=== PATIENT | male | born 1955 | race Caucasian/White ===

== ENCOUNTER → 2017-04-08 | Outpatient (CLI) | payer BC ==
[2017-04-08 11:43] LABS: Basophils # (A) 0.1 k/uL (0-0.2); Basophils % (A) 1 %; CH 27.6; CHCM 31.7; Eosinophils # (A) 0.2 k/uL (0-0.7); Eosinophils % (A) 3 %; HCT 42.3 % (39.0-53.0); HGB 13.7 gm/dL (13.0-17.5); Hypochromasia Slight; Luc # (Auto) 0.15; Luc % (Auto) 2; Lymphocytes # (A) 1.3 k/uL (1.0-4.8); Lymphocytes % (A) 16 %; MCH 28.4 pg (25.0-35.0); MCHC 32.4 g/dL (31.0-37.0); MCV 87.6 fL (80.0-100.0); Mean Platelet Volume 7.3; Monocytes # (A) 0.4 k/uL (0-1.0); Monocytes % (A) 5 %; Neutrophils # (A) 6.2 k/uL (1.3-7.7); Neutrophils % (A) 74 %; RBC 4.83 m/uL (4.30-5.90); RDW 14.4 % (11.5-15.5); WBC 8.4 k/uL (3.8-10.6); WBC (Perox) 8.27
[2017-04-08 13:34] LABS: ALT 31 U/L (21-72); AST 22 U/L (17-59); Alkaline Phosphatase 74 U/L (38-126); Anion Gap 8 mmol/L; Blood Urea Nitrogen 21 mg/dL (9-20); Calcium 8.7 mg/dL (8.4-10.2); Carbon Dioxide 26 mmol/L (22-30); Chloride 107 mmol/L (98-107); Glucose 140 mg/dL (74-99); Non-African American GFR(MDRD) >60 (>60 ml/min/1.73 sqM); Potassium 4.2 mmol/L (3.5-5.1); Sodium 141 mmol/L (137-145); Total Bilirubin 0.4 mg/dL (0.2-1.3); Total Protein 6.9 g/dL (6.3-8.2)
[2017-04-08 13:41] LABS: Prealbumin 13 mg/dL (18-36)
== END | disposition home or self-care (01) ==
LOC: LABWHC1 11:17
PROVIDERS: ATTEND Podiatrist
DX: I87.2 Venous insufficiency (chronic) (peripheral) (principal)
CPT/HCPCS: 36415; 80053; 84134; 85025

== ENCOUNTER → 2017-04-20 | Outpatient (CLI) | payer BC ==
--- NOTE | 2017-04-20 09:16 | US ---
LOWER EXTREMITY VENOUS INSUFFICIENCY Wound care patient. Wound left leg x 2 months. Hx of blood clots in right leg and PE's. On blood th inners. Bilateral hip replacement. No pain. Comparison: Prior lower extremity venous ultrasound February 13, 2016 SIDE PERFORMED: Bilateral 1) Color flow is present and patency is documented in the following vessels. No DVT or SVT is noted . ? EIV ? Common Femoral Vein ? Deep Femoral Vein ? Femoral Vein ? Popliteal Vein ? Greater Saph Vein 2) There is venous reflux noted at the following venous levels: Right CFV, Deep Femoral Vein, Femoral Vein and Popliteal Vein. Left CFV, Femoral Vein and Popliteal Vein. IMPRESSION: No ultrasound evidence for acute DVT in either lower extremity on today's study. Right gr eater than left lower extremity venous reflux is seen as detailed above.
--- NOTE | 2017-04-27 10:16 | P.ARTDOP ---
Arterial Doppler LOWER EXTREMITY ARTERIAL DOPPLER: DATE OF SERVICE: 04/20/2017 Reason for study: Left leg ulcer. Doppler waveforms: Multiphasic bilaterally throughout. Pulse volume recording: Normal configuration. Pressure gradients: None. Ankle-brachial indices: Greater than 1 bilaterally. Toe pressures: 125 on the right, 140 on the left Impression: Normal study.
== END | disposition home or self-care (01) ==
LOC: RADUSWWP 06:56
PROVIDERS: ATTEND Podiatrist
DX: M79.604 Pain in right leg (principal); M79.605 Pain in left leg; R60.9 Edema, unspecified
CPT/HCPCS: 93922

== ENCOUNTER → 2018-04-10 | Outpatient (CLI) | payer BC ==
--- NOTE | 2018-04-10 12:25 | US ---
EXAMINATION TYPE: US venous doppler duplex LE LT DATE OF EXAM: 04/10/2018 9:46 AM COMPARISON: 04/20/2017 CLINICAL HISTORY: 63-year-old male M79.605 PAIN IN LT LEG. LOWER EXTREMITY VENOUS INSUFFICIENCY SIDE PERFORMED: left FINDINGS: 1) Color flow is present and patency is documented in the following vessels. No DVT or SVT is noted . EIV Common Femoral Vein Femoral Vein Popliteal Vein Greater Saph Vein Upper Small Saph Vein 2) There is venous reflux noted at the following venous levels: Mid and lower femoral vein. Lower popliteal vein. Inclusion Specialist notes: Very limited study, unable to see upper femoral vein and DFV at CFV bifurcation du e to patient body habitus. There is some subcutaneous soft tissue swelling with edema channels in the upper calf. IMPRESSION: 1. Limited exam. Due to patient body habitus, unable to visualize the upper femoral vein or the deep femoral vein. These vessels are not assessed. 2. No evidence for DVT within the remainder of the left lower extremity imaged from the groin to the calf. 3. Venous reflux seen in the mid and lower femoral vein as well as the lower popliteal vein.
--- NOTE | 2018-04-12 09:07 | P.ARTDOP ---
Arterial Doppler LOWER EXTREMITY ARTERIAL DOPPLER: DATE OF SERVICE: 04/10/2018 Reason for study: Left leg ulcer. Doppler waveforms: Multiphasic bilaterally throughout. Pulse volume recording: []. Pressure gradients: None. Ankle-brachial indices: Greater than 1 bilaterally. Toe pressures: 131 on the right, 131 on the left Impression: Normal study.
== END | disposition home or self-care (01) ==
LOC: RADUSWWP 09:06
PROVIDERS: ATTEND Podiatrist
DX: I87.2 Venous insufficiency (chronic) (peripheral) (principal)
CPT/HCPCS: 93923

== ENCOUNTER → 2018-05-04 | Outpatient (CLI) | payer BC ==
--- NOTE | 2018-05-04 15:39 | ECHOF ---
Referral Reason:R06.02 Shortness of Breath, I10 Hypertension MEASUREMENTS -------- HEIGHT: 175.3 cm WEIGHT: 222.3 kg BP: RVIDd: 3.7 cm (< 3.3) IVSd: 1.6 cm (0.6 - 1.1) LVIDd: 5.3 cm (3.9 - 5.3) LVPWd: 1.5 cm (0.6 - 1.1) IVSs: 1.8 cm LVIDs: 4.1 cm LVPWs: 1.7 cm LA Diam: 4.1 cm (2.7 - 3.8) Ao Diam: 4.3 cm (2.0 - 3.7) AV Cusp: 1.8 cm (1.5 - 2.6) LA Diam: 3.3 cm (2.7 - 3.8) EPSS: 1.0 cm MV E Weston: 0.52 m/s MV DecT: 218 ms MV A Weston: 0.55 m/s MV E/A Ratio: 0.94 MV EF SLOPE: 72.14 mm/s (70 - 150) MV EXCURSION: 1.59 cm (> 18.000) FINDINGS -------- Sinus rhythm. Morbid Obesity The left ventricular size is normal. There is mild concentric left ventricular hypertrophy. Overa ll left ventricular systolic function is low-normal with, an EF between 50 - 55 %. The right ventricle is mild to moderately enlarged. The left atrial size is normal. The right atrial size is normal. 1.5mg of Definity was utilized for enhancement of images The aortic valve is trileaflet, and appears structurally normal. No aortic stenosis or regurgitation. Mild mitral regurgitation is present. No regurgitation noted Right ventricular systolic pressure is normal at < 35 mmHg. There is no ev idence of pulmonary hypertension. The pulmonic valve was not well visualized. There is no pericardial effusion. CONCLUSIONS -------- 1. Morbid Obesity 2. The left ventricular size is normal. 3. There is mild concentric left ventricular hypertrophy. 4. Overall left ventricular systolic function is low-normal with, an EF between 50 - 55 %. 5. The right ventricle is mild to moderately enlarged. 6. The left atrial size is normal. 7. The right atrial size is normal. 8. 1.5mg of Definity was utilized for enhancement of images 9. The aortic valve is trileaflet, and appears structurally normal. No aortic stenosis or regurgitati on. 10. Mild mitral regurgitation is present. 11. No regurgitation noted 12. Right ventricular systolic pressure is normal at < 35 mmHg. 13. There is no evidence of pulmonary hypertension. 14. The pulmonic valve was not well visualized. 15. There is no pericardial effusion. ASSISTANT PROFESSOR OF ART: Meme Patricia RDCS
== END | disposition home or self-care (01) ==
LOC: RADECHMAIN 13:09
PROVIDERS: ATTEND Internal Medicine Interventional Cardiology
DX: I34.0 Nonrheumatic mitral (valve) insufficiency (principal); E66.01 Morbid (severe) obesity due to excess calories; I10 Essential (primary) hypertension
CPT/HCPCS: 93306; Q9950

== ENCOUNTER → 2018-08-03 | Outpatient (CLI) | payer MEDICARE, BC ==
[2018-08-03 14:48] VITALS: BP 175/81; PULSE 84; RESP 16; TEMP 98.5; BMI 74.2
--- NOTE | 2018-08-03 16:44 | P.HPBAR ---
Bariatric H&P - History & Physicial H&P Date: 08/03/18 History & Physicial: Visit/CC: bariatric consult Patient initial contact: Initial weight: 228.066 kg Initial weight in pounds: 502.80 Height: 5 ft 9 in Initial BMI: 74.2 Last weight: Current weight: 228.066 kg Current weight in pounds: 502.80 Current BMI: 74.2 [place] body weight (based on NIH guidelines): 72.575 kg Excess body weight loss: 0.0% The patient is a 63 year-old M who presents for Bariatric Assessment. Patient presents today as a new patient bariatric evaluation. Patient is several with his weight for many years. Currently has a BMI of 74 with a weight of 502. Patient suffers from hypertension, diabetes, arthritis, sleep apnea. The patient has a history of previous DVT with PE. Currently on anticoagulation. Denies dysphagia. Was initially mainly interested in sleeve gastrectomy. Previous surgeries including umbilical hernia and nephrectomy. 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 Past Drug Use History: None Reported - Past Family History Son(s) Additional Family Medical History / Comment(s): He has one son with morbid obesity. Mother Family Medical History: Cancer Additional Family Medical History / Comment(s): breast cancer Father Family Medical History: Cancer, COPD, Coronary Artery Disease (CAD), Hypertension, Myocardial Infarction (AR) Additional Family Medical History / Comment(s): emphysema Surgical - Exam Vital Signs Temp Pulse Resp BP 98.5 F 84 16 175/81 08/03/18 14:31 08/03/18 14:31 08/03/18 14:31 08/03/18 14:31 Physical exam: General: Well-developed, well-nourished HEENT: Normocephalic, sclerae nonicteric Abdomen: Nontender, nondistended, large pannus, previous scars Extremities: Lower cavity edema with evidence of venous stasis. Neuro: Alert and oriented Bariatric Assessment & Plan (1) Morbid obesity with BMI of 60.0-69.9, adult Narrative/Plan: Options discussed in detail with the patient. After discussing the risk benefit profile of both gastric bypass and sleeve gastrectomy and the anticipated weight loss the patient is open to discussing and looking into gastric bypass further. Patient will go to a bariatric seminar this coming week put on by Dr. Prieto. Following that the patient will notify us of his decision regarding his preferred surgical procedure. Associated risks with both procedure were reviewed in detail. Will require preoperative cardiac and medical clearance. Patient will be maintained on postoperative anticoagulation. Status: Acute Bariatric Checklist Checklist: Plan: Checklist: EGD: 1. Hiatal hernia: 2. H. Pylori: HgbA1c: Vitamin D: Smoking: Never smoker Primary care physician referral: [facility] Psychiatry clearance: Cardiology clearance: Sleep study: Diet journal: VTE risk score: VTE risk level: Rehab needs at discharge:
== END | disposition home or self-care (01) ==
LOC: BARWHC3 14:19
PROVIDERS: ATTEND Surgery
DX: E66.01 Morbid (severe) obesity due to excess calories (principal); I82.409 Acute embolism and thrombosis of unspecified deep veins of unspecified lower extremity; Z68.44 Body mass index [BMI] 60.0-69.9, adult; Z79.01 Long term (current) use of anticoagulants
CPT/HCPCS: 99211

== ENCOUNTER → 2018-08-31 | Outpatient (CLI) | payer MEDICARE, BC ==
[2018-08-31 12:18] VITALS: BP 164/75; PULSE 76; TEMP 98; BMI 73.3
[2018-08-31 14:36] LABS: ALT 38 U/L (21-72); AST 19 U/L (17-59); Albumin 3.5 g/dL (3.5-5.0); Alkaline Phosphatase 75 U/L (38-126); Anion Gap 6 mmol/L; Blood Urea Nitrogen 21 mg/dL (9-20); Calcium 9.1 mg/dL (8.4-10.2); Carbon Dioxide 34 mmol/L (22-30); Chloride 99 mmol/L (98-107); Cholesterol 139 mg/dL (<200); Glucose 110 mg/dL (74-99); HDL Cholesterol 48 mg/dL (40-60); LDL Cholesterol,Calculated 74 mg/dL (0-99); Potassium 4.3 mmol/L (3.5-5.1); Sodium 139 mmol/L (137-145); Total Bilirubin 0.7 mg/dL (0.2-1.3); Total Protein 7.3 g/dL (6.3-8.2); Triglycerides 84 mg/dL (<150)
[2018-08-31 14:37] LABS: HCT 47.2 % (39.0-53.0); HGB 14.9 gm/dL (13.0-17.5); Hypochromasia Moderate; MCH 26.9 pg (25.0-35.0); MCHC 31.6 g/dL (31.0-37.0); MCV 85.2 fL (80.0-100.0); Mean Platelet Volume 7.1; Platelet Count 208 k/uL (150-450); RBC 5.54 m/uL (4.30-5.90); RDW 14.2 % (11.5-15.5); WBC 15.5 k/uL (3.8-10.6)
[2018-08-31 19:58] LABS: Iron Saturation 11.6 (15.00-50.00)
[2018-08-31 20:10] LABS: Folate, Serum 8.7 ng/mL; Vitamin D 25 Hydroxy 44.7 ng/mL (30.0-100.0)
[2018-08-31 20:23] LABS: Hemoglobin A1C 8.1 % (4.0-6.0)
--- NOTE | 2018-08-31 22:04 | P.HPBAR ---
Bariatric H&P - History & Physicial H&P Date: 08/31/18 History & Physicial: Visit/CC: RnY consult Patient initial contact: Initial weight: 228.066 kg Initial weight in pounds: 502.80 Height: 5 ft 9 in Initial BMI: 74.2 Last weight: Current weight: 225.163 kg Current weight in pounds: 496.40 Current BMI: 73.3 [place] body weight (based on NIH guidelines): 72.575 kg Excess body weight loss: 1.8% The patient is a 63 year-old M who presents for Bariatric Assessment. HPI: The patient presents for bariatric evaluation following recent diagnosis of diabetes. His highest weight is 503 pounds. He is a patient at the wound care center for chronic wound ulcers. ABDOMEN: Protuberant PLAN: 1. Recommend diabetic education 2. Bariatric labs 3. Will need multiple clearances given high risk 4. Evaluation of sleeve gastrectomy and bypass reviewed. 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 Past Drug Use History: None Reported - Past Family History Son(s) Additional Family Medical History / Comment(s): He has one son with morbid obesity. Mother Family Medical History: Cancer Additional Family Medical History / Comment(s): breast cancer Father Family Medical History: Cancer, COPD, Coronary Artery Disease (CAD), Hypertension, Myocardial Infarction (AR) Additional Family Medical History / Comment(s): emphysema Surgical - Exam Vital Signs Temp Pulse BP 98 F 76 164/75 08/31/18 12:11 08/31/18 12:11 08/31/18 12:11 Results - Labs 08/31/18 13:40 08/31/18 13:40 Abnormal Lab Results - Last 24 Hours (Table) 08/31/18 08/31/18 08/31/18 Range/Units 13:40 13:40 13:40 WBC 15.5 H (3.8-10.6) k/uL Carbon Dioxide 34 H (22-30) mmol/L BUN 21 H (9-20) mg/dL Glucose 110 H (74-99) mg/dL Hemoglobin A1c (4.0-6.0) % Iron 42 L (65-175) ug/dL Iron Saturation 11.60 L (15.00-50.00) 08/31/18 Range/Units 13:40 WBC (3.8-10.6) k/uL Carbon Dioxide (22-30) mmol/L BUN (9-20) mg/dL Glucose (74-99) mg/dL Hemoglobin A1c 8.1 H (4.0-6.0) % Iron (65-175) ug/dL Iron Saturation (15.00-50.00) Diabetes panel 08/31/18 08/31/18 Range/Units 13:40 13:40 Sodium 139 (137-145) mmol/L Potassium 4.3 (3.5-5.1) mmol/L Chloride 99 (98-107) mmol/L Carbon Dioxide 34 H (22-30) mmol/L BUN 21 H (9-20) mg/dL Creatinine 0.77 (0.66-1.25) mg/dL Glucose 110 H (74-99) mg/dL Hemoglobin A1c 8.1 H (4.0-6.0) % Calcium 9.1 (8.4-10.2) mg/dL AST 19 (17-59) U/L ALT 38 (21-72) U/L Alkaline Phosphatase 75 (38-126) U/L Total Protein 7.3 (6.3-8.2) g/dL Albumin 3.5 (3.5-5.0) g/dL Triglycerides 84 (<150) mg/dL HDL Cholesterol 48 (40-60) mg/dL Thyroid panel 08/31/18 Range/Units 13:40 TSH 1.230 (0.465-4.680) mIU/L Calcium panel 08/31/18 Range/Units 13:40 Calcium 9.1 (8.4-10.2) mg/dL Albumin 3.5 (3.5-5.0) g/dL Pituitary panel 08/31/18 Range/Units 13:40 Sodium 139 (137-145) mmol/L Potassium 4.3 (3.5-5.1) mmol/L Chloride 99 (98-107) mmol/L Carbon Dioxide 34 H (22-30) mmol/L BUN 21 H (9-20) mg/dL Creatinine 0.77 (0.66-1.25) mg/dL Glucose 110 H (74-99) mg/dL Calcium 9.1 (8.4-10.2) mg/dL TSH 1.230 (0.465-4.680) mIU/L Adrenal panel 08/31/18 Range/Units 13:40 Sodium 139 (137-145) mmol/L Potassium 4.3 (3.5-5.1) mmol/L Chloride 99 (98-107) mmol/L Carbon Dioxide 34 H (22-30) mmol/L BUN 21 H (9-20) mg/dL Creatinine 0.77 (0.66-1.25) mg/dL Glucose 110 H (74-99) mg/dL Calcium 9.1 (8.4-10.2) mg/dL Total Bilirubin 0.7 (0.2-1.3) mg/dL AST 19 (17-59) U/L ALT 38 (21-72) U/L Alkaline Phosphatase 75 (38-126) U/L Total Protein 7.3 (6.3-8.2) g/dL Albumin 3.5 (3.5-5.0) g/dL Bariatric Checklist Checklist: Plan: Checklist: EGD: 1. Hiatal hernia: 2. H. Pylori: HgbA1c: Vitamin D: Smoking: Never smoker Primary care physician referral: [facility] Psychiatry clearance: Cardiology clearance: Sleep study: Diet journal: VTE risk score: VTE risk level: Rehab needs at discharge:
== END | disposition home or self-care (01) ==
LOC: BARWHC3 11:06
PROVIDERS: ATTEND Surgery Plastic and Reconstructive Surgery
DX: E11.622 Type 2 diabetes mellitus with other skin ulcer (principal); L98.499 Non-pressure chronic ulcer of skin of other sites with unspecified severity; F41.9 Anxiety disorder, unspecified; F32.9 Major depressive disorder, single episode, unspecified; E66.01 Morbid (severe) obesity due to excess calories; E88.81 Metabolic syndrome and other insulin resistance; E44.0 Moderate protein-calorie malnutrition; E55.9 Vitamin D deficiency, unspecified; Z68.43 Body mass index [BMI] 50.0-59.9, adult; I11.9 Hypertensive heart disease without heart failure; G47.30 Sleep apnea, unspecified; Z90.89 Acquired absence of other organs; Z98.890 Other specified postprocedural states
CPT/HCPCS: 84425; 80061; 80053; 82607; 82728; 82746; 83540; 83550; 84443; 85027; 82306; 83036; 93005; 36415; G0463; 99211

== ENCOUNTER 2018-09-25 06:31 | Day surgery (SDC) | payer MEDICARE, BC ==
[2018-09-20 15:19] VITALS: BMI 73.2
--- NOTE | 2018-09-24 18:51 | P.GSHP ---
History of Present Illness H&P Date: 09/25/18 CHIEF COMPLAINT: GERD HISTORY OF PRESENT ILLNESS: The patient is a 63-year-old male who presents reports gastroesophageal reflux disease. Upper endoscopy was offered for further evaluation and management. PAST MEDICAL HISTORY: Please see list. PAST SURGICAL HISTORY: Please see list. MEDICATIONS: Please see list. ALLERGIES: Please see list. SOCIAL HISTORY: No illicit drug use FAMILY HISTORY: No reports of Crohn disease or ulcerative colitis. REVIEW OF ORGAN SYSTEMS: CONSTITUTIONAL: No reports of fevers or chills. GI: Denies any blood in stools or constipation. PHYSICAL EXAM: VITAL SIGNS: Stable GENERAL: Well-developed and pleasant in no acute distress. HEENT: No scleral icterus. Extraocular movements grossly intact. Moist buccal mucosa. NECK: Supple without lymphadenopathy. CHEST: Unlabored respirations. Equal bilateral excursions. CARDIOVASCULAR: Regular rate and rhythm. Distal 2+ pulses. ABDOMEN: Soft, nondistended. MUSCULOSKELETAL: No clubbing, cyanosis, or edema. ASSESSMENT: 1. Gastroesophageal reflux disease PLAN: 1. 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 COLONOSCOPY, Past Anesthesia/Blood Transfusion Reactions: No Reported Reaction Smoking Status: Never smoker - Past Family History Son(s) Additional Family Medical History / Comment(s): He has one son with morbid obesity. Mother Family Medical History: Cancer Additional Family Medical History / Comment(s): breast cancer Father Family Medical History: Cancer, COPD, Coronary Artery Disease (CAD), Hypertension, Myocardial Infarction ([place]) Additional Family Medical History / Comment(s): emphysema Medications and Allergies Home Medications Medication Instructions Recorded Confirmed Type Carisoprodol [Soma] 350 mg PO TID PRN 03/21/14 09/20/18 History traMADol HCL [Ultram] 50 mg PO Q8HR PRN 10/05/17 09/20/18 History Albuterol Nebulized [Ventolin 2.5 mg INHALATION TID PRN 03/28/18 09/20/18 History Nebulized] Metoprolol Tartrate 25 mg PO BID 03/28/18 09/20/18 History Rivaroxaban [Xarelto] 10 mg PO DAILY 03/28/18 09/20/18 History Lisinopril [Zestril] 5 mg PO DAILY 07/13/18 09/20/18 History Vit D3/Folic Acid/B2/B6/B12 1.25 tab PO Q30D 07/13/18 09/20/18 History [Folgard Tablet] metFORMIN HCL [Glucophage] 500 mg PO BID 08/31/18 09/20/18 History Allergies Allergy/AdvReac Type Severity Reaction Status Date / Time Sulfa (Sulfonamide Allergy throat Verified 09/20/18 15:14 Antibiotics) swelling
[~2018-09-25 06:31] MED LIST: LACTATED RINGERS 1,000 ML IV SCH; LIDOCAINE 1% 20 ML VIAL (10MG/ML) FOR IV START INTRADERMA PRN
[2018-09-25 06:57] VITALS: TEMP 99
[2018-09-25 07:03] LABS: Glucose,Whole Blood 141 mg/dL (75-99)
[2018-09-25] MEDS ORDERED: LACTATED RINGERS 1,000 ML IV ONE ×2 (07:08)
[2018-09-25] MEDS ORDERED: MIDAZOLAM 2 MG/2 ML VIAL ONE (07:11)
[2018-09-25] MEDS ORDERED: PROPOFOL 10 MG/ML 20 ML VIAL IV ONE (07:11)
[2018-09-25] MEDS ORDERED: KETAMINE 10 MG/ML 20 ML VIAL ONE (07:11)
--- NOTE | 2018-09-25 07:30 | P.PCN ---
Date of Procedure: 09/25/18 Description of Procedure: PREOPERATIVE DIAGNOSIS: Gastroesophageal reflux disease. Morbid obesity. POSTOPERATIVE DIAGNOSIS: Morbid obesity. Gastroesophageal reflux disease. OPERATION: Esophagogastroduodenoscopy with biopsies along antrum. SURGEON: Shoshana Roblero MD ANESTHESIA: MAC. INDICATIONS: The patient is a 63-year-old male who presents with a history of reflux disease. Benefits and risks of the procedure were described. Informed consent was obtained. DESCRIPTION: The patient was brought into the endoscopy suite and laid in the left lateral decubitus position. An Olympus gastroscope was passed along the posterior oropharynx down to the distal esophagus where the squamocolumnar junction was encountered at 42 cm from the incisors. The stomach was entered and no bile reflux was found. Additional findings are listed below. Biopsies with cold forceps were obtained of the antrum. The first through third portion of the duodenum was examined and unremarkable. Retroflexion of the scope confirmed Hill grade 2 lower esophageal valve. The squamocolumnar junction demonstrated no LA grade A erosive esophagitis. The stomach was desufflated. The patient tolerated the procedure well. FINDINGS: Squamocolumnar junction 40 cm from the incisors. Diaphragmatic hiatus at 40 cm. Hill grade 2 lower esophageal valve. No LA grade A erosive esophagitis. No active duodenitis. Mild chronic gastritis RECOMMENDATIONS: Upper endoscopy as needed. Plan - Discharge Summary New Discharge Prescriptions: No Action Carisoprodol [Soma] 350 mg PO TID PRN PRN Reason: Pain traMADol HCL [Ultram] 50 mg PO Q8HR PRN PRN Reason: Pain Rivaroxaban [Xarelto] 10 mg PO DAILY Metoprolol Tartrate 25 mg PO BID Albuterol Nebulized [Ventolin Nebulized] 2.5 mg INHALATION TID PRN PRN Reason: sob Lisinopril [Zestril] 5 mg PO DAILY Vit D3/Folic Acid/B2/B6/B12 [Folgard Tablet] 1.25 tab PO Q30D metFORMIN HCL [Glucophage] 500 mg PO BID Discharge Medication List Carisoprodol [Soma] 350 mg PO TID PRN 03/21/14 [History] traMADol HCL [Ultram] 50 mg PO Q8HR PRN 10/05/17 [History] Albuterol Nebulized [Ventolin Nebulized] 2.5 mg INHALATION TID PRN 03/28/18 [ History] Metoprolol Tartrate 25 mg PO BID 03/28/18 [History] Rivaroxaban [Xarelto] 10 mg PO DAILY 03/28/18 [History] Lisinopril [Zestril] 5 mg PO DAILY 07/13/18 [History] Vit D3/Folic Acid/B2/B6/B12 [Folgard Tablet] 1.25 tab PO Q30D 07/13/18 [History] metFORMIN HCL [Glucophage] 500 mg PO BID 08/31/18 [History]
[2018-09-25 07:43] VITALS: RESP 18
[2018-09-25 08:01] VITALS: PULSE 71
[2018-09-25 08:22] VITALS: BP 114/75
== END 2018-09-25 08:50 | disposition home or self-care (01) ==
LOC: ORWHC2ENDO 06:31
PROVIDERS: ATTEND Surgery Plastic and Reconstructive Surgery
DX: K29.50 Unspecified chronic gastritis without bleeding (principal); E66.01 Morbid (severe) obesity due to excess calories; Z68.45 Body mass index [BMI] 70 or greater, adult; I10 Essential (primary) hypertension; Z86.718 Personal history of other venous thrombosis and embolism; Z86.711 Personal history of pulmonary embolism; J45.909 Unspecified asthma, uncomplicated; G47.33 Obstructive sleep apnea (adult) (pediatric); Z99.89 Dependence on other enabling machines and devices; E11.9 Type 2 diabetes mellitus without complications; Z79.84 Long term (current) use of oral hypoglycemic drugs; M41.9 Scoliosis, unspecified; Z79.01 Long term (current) use of anticoagulants; Z79.899 Other long term (current) drug therapy; Z88.2 Allergy status to sulfonamides
CPT/HCPCS: 88305; 43239; J2250; J2704

== ENCOUNTER → 2018-10-23 | Outpatient (CLI) | payer MEDICARE, BC ==
[2018-10-23 13:50] VITALS: BMI 73.2
== END | disposition home or self-care (01) ==
LOC: BARWHC3 09:14
PROVIDERS: ATTEND Surgery Plastic and Reconstructive Surgery
DX: E66.01 Morbid (severe) obesity due to excess calories (principal)
CPT/HCPCS: 97804

== ENCOUNTER → 2019-02-23 | Outpatient (CLI) | payer MEDICARE, BC ==
[2019-02-23 14:37] LABS: HCT 43.2 % (39.0-53.0); HGB 13.3 gm/dL (13.0-17.5); Hypochromasia Marked; MCH 25.7 pg (25.0-35.0); MCHC 30.7 g/dL (31.0-37.0); MCV 83.5 fL (80.0-100.0); Mean Platelet Volume 9.3; Platelet Count 193 k/uL (150-450); RBC 5.17 m/uL (4.30-5.90); RDW 15.2 % (11.5-15.5); WBC 9.1 k/uL (3.8-10.6)
[2019-02-23 19:08] LABS: Albumin 3.3 g/dL (3.80-4.90); Albumin/Globulin Ratio 1.06 (1.60-3.17); Anion Gap 7.5 mmol/L (4.00-12.00); Calcium 8.7 mg/dL (8.7-10.3); Carbon Dioxide 30.5 mmol/L (21.6-31.8); Globulin 3.1 g/dL (1.6-3.3); Potassium 4.7 mmol/L (3.5-5.5); Total Bilirubin 0.5 mg/dL (0.2-1.2); Total Protein 6.4 g/dL (6.2-8.2)
[2019-02-23 20:05] LABS: Hemoglobin A1C 6.2 % (4.0-6.0)
== END ==
LOC: LABWHC1 12:18
PROVIDERS: ATTEND Podiatrist
DX: I87.2 Venous insufficiency (chronic) (peripheral) (principal)
CPT/HCPCS: 36415; 80053; 83036; 84134; 85027

== ENCOUNTER → 2019-04-25 | Outpatient (CLI) | payer MEDICARE, BC ==
[2019-04-25 15:18] VITALS: BP 102/66; PULSE 64; TEMP 98.3; BMI 71.1
--- NOTE | 2019-04-25 15:56 | P.PN ---
Subjective Progress Note Date: 04/25/19 He is looking into gastrectomy procedure. He has completed cardiac, pulmonary. He has chronic infections and had elevated WBC. He ambulates with walker, canes and wheelchair. He has lost 20+ pounds in 8 months. His blood pressure is improved. Sleeve procedure consent. All labs and clearances reviewed. Risks included. DATE OF SERVICE: 08/31/2018 REASON FOR CONSULTATION: Initial bariatric evaluation. HISTORY OF PRESENT ILLNESS: Doug Meng is a 63-year-old male who comes in with super morbid obesity. He patient presents for bariatric evaluation following recent diagnosis of diabetes. His highest weight is 503 pounds. He is a patient at the wound care center for chronic wound ulcers. He has limited mobility as he uses a scooter to move around. He has history of severe lymphedema of the bilateral lower extremities. At height of 5 feet 9 inches, his ideal body weight is 168 pounds. He comes in 495 pounds. His highest weight is 503 pounds. His body mass index highest was 74.0. Today his BMI is 73.3. He is 327 pounds overweight. PAST MEDICAL HISTORY: 1. Morbid obesity due to excess calories 2. Body mass index of 74.0, initial 3. Osteoarthritis of the knees. 4. Osteoarthritis of the lower back. 5. Hypertensive heart disease. 6. Asthma 7. Obstructive sleep apnea 8. Deep venous thrombosis 9. Pulmonary embolism 10. Rheumatoid arthritis 11. Pneumonia 12. Diabetes type 2 13. Anxiety disorder 14. Depressive disorder 15. Venous stasis disease PAST SURGICAL HISTORY: 1. Appendectomy 2. Tonsillectomy 3. Adenoidectomy 4. Hernia repair 5. Bilateral hip replacement 6. Nephrectomy HOME MEDICATIONS: ALLERGIES: Home Medications Medication Instructions Recorded Confirmed Type Carisoprodol [Soma] 350 mg PO TID PRN 03/21/14 09/20/18 History traMADol HCL [Ultram] 50 mg PO Q8HR PRN 10/05/17 09/20/18 History Albuterol Nebulized [Ventolin 2.5 mg INHALATION TID PRN 03/28/18 09/20/18 History Nebulized] Metoprolol Tartrate 25 mg PO BID 03/28/18 09/20/18 History Rivaroxaban [Xarelto] 10 mg PO DAILY 03/28/18 09/20/18 History Lisinopril [Zestril] 5 mg PO DAILY 07/13/18 09/20/18 History Vit D3/Folic Acid/B2/B6/B12 1.25 tab PO Q30D 07/13/18 09/20/18 History [Folgard Tablet] metFORMIN HCL [Glucophage] 500 mg PO BID 08/31/18 09/20/18 History Allergies Allergy/AdvReac Type Severity Reaction Status Date / Time Sulfa (Sulfonamide Allergy throat Verified 09/20/18 15:14 Antibiotics) swelling SOCIAL HISTORY: No active tobacco use. FAMILY HISTORY: No family history of ulcerative colitis disease or Crohn's disease. Family history of morbid obesity. No lupus in the family. No reports of stomach or esophageal cancer. REVIEW OF ORGAN SYSTEMS: CONSTITUTIONAL: At height of 5 feet 9 inches, his ideal body weight is 168 pounds. He comes in 495 pounds. His highest weight is 503 pounds. His body mass index highest was 74.0. Today his BMI is 73.3. He is 327 pounds overweight. HEENT: Denies any active troubles with vision or hearing. No troubles with swallowing. ENDOCRINE: No diabetes. No hypothyroidism. CARDIOVASCULAR: No reports of palpitations or heart attacks or chest pain. Has bilateral leg ulcers. RESPIRATORY: Has daytime somnolence. Has asthma. GI: Denies any bright red blood per rectum. No diarrhea. Has constipation. MUSCULOSKELETAL: Has lower back pain and joint pain. Has osteoarthritis of the knees. History of bilateral lower extremity edema. NEURO: No headaches. No seizure disorders. PSYCH: Has depression. No suicidal ideation. RHEUMATOLOGIC: No lupus. No rheumatoid arthritis. HEMATOLOGIC: Denies any abnormal bleeding or bruising. No personal history of DVTs. SKIN: No rash. No skin cancer. History of venous stasis disease. PHYSICAL EXAM: VITAL SIGNS: Height 5 foot 9 inches, weight 495 pounds. BMI 73.3 Vital Signs Temp 98 F 08/31/18 12:11 Pulse 76 08/31/18 12:11 Resp BP 164/75 08/31/18 12:11 Pulse Ox GENERAL: Well-developed in no acute distress. HEENT: No scleral icterus. Extraocular movements grossly intact. Hears conversational speech. No nasal drainage. NECK: Supple without lymphadenopathy. CHEST: Nonlabored respirations with equal bilateral excursions. CARDIOVASCULAR: Regular rate and regular rhythm. Distal 2+ pulses. ABDOMEN: Obese, soft, nontender, nondistended. MUSCULOSKELETAL: No clubbing, cyanosis. Gross strength 5/5 distal lower extremities. NEURO: No focal or lateralizing signs. Cranial nerves 2 through 12 grossly within normal limits. PSYCH: Appropriate affect. Alert and oriented to person, place and time. SKIN: Good skin turgor. Well perfused. ASSESSMENT: 1. Morbid obesity due to excess calories 2. Body mass index of 74.0, initial 3. Osteoarthritis of the knees. 4. Osteoarthritis of the lower back. 5. Hypertensive heart disease. 6. Asthma 7. Obstructive sleep apnea 8. Deep venous thrombosis 9. Pulmonary embolism 10. Rheumatoid arthritis 11. Pneumonia 12. Diabetes type 2 13. Anxiety disorder 14. Depressive disorder 15. Venous stasis disease PLAN: 1. Surgical options including a band, gastric bypass, sleeve gastrectomy were described in detail. Alternatives such as gastric balloon including duodenal switch were described. 2. The [place] bariat[facility] surgical collaborative data and outcomes calculator were described with surgical options. 3. Recommend a bariatric metabolic panel to evaluate for micro- including macronutrient deficiencies. 4. For history of daytime somnolence, recommend evaluation and treatment for sleep apnea. 5. Dietary surveillance and counseling was reviewed, I have asked increased protein intake to at least 65 grams daily. 6. Will need cardiac risk assessment. 7. Recommend medical risk assessment. 8. Psych assessment per insurance guidelines. 9. Recommend upper endoscopy. 10. Recommend 12-lead EKG. 11. Recommend diabetic education 12. Will need multiple clearances given her high risk 13. Evaluation of sleeve gastrectomy and bypass reviewed per patient request.. Objective - Vital Signs Vital signs: Vital Signs Temp 98.3 F 04/25/19 15:01 Pulse 64 04/25/19 15:01 Resp BP 102/66 04/25/19 15:01 Pulse Ox Intake & Output 04/24/19 04/25/19 04/25/19 18:59 06:59 18:59 Weight 218.586 kg
== END ==
LOC: BARWHC3 14:05
PROVIDERS: ATTEND Surgery Plastic and Reconstructive Surgery
DX: E66.01 Morbid (severe) obesity due to excess calories (principal); M17.0 Bilateral primary osteoarthritis of knee; M19.90 Unspecified osteoarthritis, unspecified site; I11.9 Hypertensive heart disease without heart failure; J45.909 Unspecified asthma, uncomplicated; G47.33 Obstructive sleep apnea (adult) (pediatric); I82.409 Acute embolism and thrombosis of unspecified deep veins of unspecified lower extremity; I26.99 Other pulmonary embolism without acute cor pulmonale; M06.9 Rheumatoid arthritis, unspecified; J18.9 Pneumonia, unspecified organism; E11.9 Type 2 diabetes mellitus without complications; F41.8 Other specified anxiety disorders; I87.8 Other specified disorders of veins; Z68.45 Body mass index [BMI] 70 or greater, adult; Z88.2 Allergy status to sulfonamides; Z79.899 Other long term (current) drug therapy; Z79.84 Long term (current) use of oral hypoglycemic drugs; Z88.1 Allergy status to other antibiotic agents
CPT/HCPCS: 99211

== ENCOUNTER → 2019-06-06 | Outpatient (CLI) | payer MEDICARE, BC ==
--- NOTE | 2019-06-06 17:42 | P.PN ---
Progress Note - Text Progress Note Date: 06/06/19 Patient left before being seen
== END | disposition home or self-care (01) ==
LOC: BARWHC3 16:07
PROVIDERS: ATTEND Surgery Plastic and Reconstructive Surgery
DX: Z53.9 Procedure and treatment not carried out, unspecified reason (principal)

== ENCOUNTER → 2019-07-03 | Outpatient (CLI) | payer MEDICARE, BC ==
[2019-07-03 14:42] LABS: Basophils % (A) 0 %; Eosinophils # (A) 0.1 k/uL (0-0.7); Eosinophils % (A) 1 %; HCT 46.7 % (39.0-53.0); HGB 14.5 gm/dL (13.0-17.5); Hypochromasia Slight; Lymphocytes # (A) 2.6 k/uL (1.0-4.8); Lymphocytes % (A) 18 %; MCH 26.5 pg (25.0-35.0); MCHC 31.1 g/dL (31.0-37.0); MCV 85.2 fL (80.0-100.0); Mean Platelet Volume 7.6; Monocytes # (A) 0.7 k/uL (0-1.0); Monocytes % (A) 5 %; Neutrophils # (A) 10.8 k/uL (1.3-7.7); Neutrophils % (A) 75 %; Platelet Count 187 k/uL (150-450); RBC 5.48 m/uL (4.30-5.90); RDW 15.6 % (11.5-15.5); WBC 14.4 k/uL (3.8-10.6)
[2019-07-03 14:58] LABS: ALT 29 U/L (21-72); AST 21 U/L (17-59); African American GFR (CKD) >90 (>60 ml/min/1.73 sqM); Albumin 3.7 g/dL (3.5-5.0); Alkaline Phosphatase 69 U/L (38-126); Anion Gap 11 mmol/L; Blood Urea Nitrogen 26 mg/dL (9-20); Calcium 9.6 mg/dL (8.4-10.2); Carbon Dioxide 25 mmol/L (22-30); Chloride 100 mmol/L (98-107); Glucose 86 mg/dL (74-99); Non-African American GFR(CKD) 85 (>60 ml/min/1.73 sqM); Potassium 4.7 mmol/L (3.5-5.1); Sodium 136 mmol/L (137-145); Total Bilirubin 0.7 mg/dL (0.2-1.3); Total Protein 7.4 g/dL (6.3-8.2)
== END | disposition home or self-care (01) ==
LOC: LABPAT 14:03
PROVIDERS: ATTEND Surgery Plastic and Reconstructive Surgery
DX: Z01.812 Encounter for preprocedural laboratory examination (principal); Z01.818 Encounter for other preprocedural examination
CPT/HCPCS: 36415; 80053; 85025; 86850; 86900; 86901

== ENCOUNTER 2019-07-09 07:57 | Day surgery (SDC) | payer MEDICARE, BC ==
[2019-06-28 18:07] VITALS: BMI 70.9
--- NOTE | 2019-07-08 21:47 | P.GSHP ---
History of Present Illness H&P Date: 07/09/19 DATE OF SERVICE: 07/09/2019 CHIEF COMPLAINT: Morbid obesity HISTORY OF PRESENT ILLNESS: Doug Mneg is a 64-year-old male who comes in with super morbid obesity. He has chronic wound ulcers and has diabetes as a result of his morbid obesity. He has limited mobility including severe lymphedema of the bilateral lower extremities. He is looking into gastrectomy procedures. He has completed cardiac and pulmonary clearance. He has chronic infections and had elevated WBC. He ambulates with walker, canes and wheelchair. He has lost 20+ pounds in 8 months. His blood pressure has improved. At height of 5 feet 9 inches, his ideal body weight is 168 pounds. He comes in 481 pounds from 495 pounds, 8 months ago. He has lost 15 pounds in 8 months. His highest weight is 503 pounds. His body mass index highest was 74.4. Today his BMI is 71.2. He is 312 pounds overweight. PAST MEDICAL HISTORY: 1. Morbid obesity due to excess calories 2. Body mass index of 74.4 initial 3. Osteoarthritis of the knees. 4. Osteoarthritis of the lower back. 5. Hypertensive heart disease. 6. Asthma 7. Obstructive sleep apnea 8. Deep venous thrombosis 9. Pulmonary embolism 10. Rheumatoid arthritis 11. Pneumonia 12. Diabetes type 2 13. Anxiety disorder 14. Depressive disorder 15. Venous stasis disease PAST SURGICAL HISTORY: 1. Appendectomy 2. Tonsillectomy 3. Adenoidectomy 4. Hernia repair 5. Bilateral hip replacement 6. Nephrectomy HOME MEDICATIONS: ALLERGIES: Home Medications Medication Instructions Recorded Confirmed Type Carisoprodol [Soma] 350 mg PO TID PRN 03/21/14 09/20/18 History traMADol HCL [Ultram] 50 mg PO Q8HR PRN 10/05/17 09/20/18 History Albuterol Nebulized [Ventolin 2.5 mg INHALATION TID PRN 03/28/18 09/20/18 History Nebulized] Metoprolol Tartrate 25 mg PO BID 03/28/18 09/20/18 History Rivaroxaban [Xarelto] 10 mg PO DAILY 03/28/18 09/20/18 History Lisinopril [Zestril] 5 mg PO DAILY 07/13/18 09/20/18 History Vit D3/Folic Acid/B2/B6/B12 1.25 tab PO Q30D 07/13/18 09/20/18 History [Folgard Tablet] metFORMIN HCL [Glucophage] 500 mg PO BID 08/31/18 09/20/18 History Allergies Allergy/AdvReac Type Severity Reaction Status Date / Time Sulfa (Sulfonamide Allergy throat Verified 09/20/18 15:14 Antibiotics) swelling SOCIAL HISTORY: No active tobacco use. FAMILY HISTORY: No family history of ulcerative colitis disease or Crohn's disease. Family history of morbid obesity. No lupus in the family. No reports of stomach or esophageal cancer. REVIEW OF ORGAN SYSTEMS: CONSTITUTIONAL: At height of 5 feet 9 inches, his ideal body weight is 168 pounds. His highest weight is 503 pounds. His body mass index highest was 74.4. He was 327 pounds overweight. HEENT: Denies any active troubles with vision or hearing. No troubles with swallowing. ENDOCRINE: No diabetes. No hypothyroidism. CARDIOVASCULAR: No reports of palpitations or heart attacks or chest pain. Has bilateral leg ulcers. RESPIRATORY: Has daytime somnolence. Has asthma. GI: Denies any bright red blood per rectum. No diarrhea. Has constipation. MUSCULOSKELETAL: Has lower back pain and joint pain. Has osteoarthritis of the knees. History of bilateral lower extremity edema. NEURO: No headaches. No seizure disorders. PSYCH: Has depression. No suicidal ideation. RHEUMATOLOGIC: No lupus. No rheumatoid arthritis. HEMATOLOGIC: Denies any abnormal bleeding or bruising. No personal history of DVTs. SKIN: No rash. No skin cancer. History of venous stasis disease. PHYSICAL EXAM: VITAL SIGNS: Height 5 foot 9 inches, weight 481 pounds. BMI 71.2 GENERAL: Well-developed in no acute distress. HEENT: No scleral icterus. Extraocular movements grossly intact. Hears conversational speech. No nasal drainage. NECK: Supple without lymphadenopathy. CHEST: Nonlabored respirations with equal bilateral excursions. CARDIOVASCULAR: Regular rate and regular rhythm. Distal 2+ pulses. ABDOMEN: Obese, soft, nontender, nondistended. MUSCULOSKELETAL: No clubbing, cyanosis. Gross strength 5/5 distal lower ext remities. Has 3+ bilateral lower extremity edema NEURO: No focal or lateralizing signs. Cranial nerves 2 through 12 grossly within normal limits. PSYCH: Appropriate affect. Alert and oriented to person, place and time. SKIN: Good skin turgor. Well perfused. ASSESSMENT: 1. Morbid obesity due to excess calories 2. Body mass index of 74.4, initial 3. Osteoarthritis of the knees. 4. Osteoarthritis of the lower back. 5. Hypertensive heart disease. 6. Asthma 7. Obstructive sleep apnea 8. Deep venous thrombosis 9. Pulmonary embolism 10. Rheumatoid arthritis 11. Pneumonia 12. Diabetes type 2 13. Anxiety disorder 14. Depressive disorder 15. Venous stasis disease 16. Leukocytosis PLAN: 1. Bariatric options between a sleeve, band and a Sarah-en-Y gastric bypass were reviewed in detail. The patient elected for a sleeve gastrectomy. Robotic assisted approach described. 2. The [place] [facility] Data was also reviewed with benefits and risks as described. 3. An 8 page second-generation bariatric consent form was reviewed in detail including potential of bleeding, infection, leaks, adequate weight loss, nutritional deficiencies which the patient demonstrated understanding of the risks. 4. A 2 week high-protein low caloric 800 kcal diet described to address hepatomegaly. 5. Preoperative labs including complete metabolic panel and CBC with type and screen recommended. 6. DVT prophylaxis per [place] [facility]ariat[facility] collaborative. 7. Antibiotic prophylaxis. 8. Inpatient hospitalization anticipated for more than 2 nights. 9. All questions and concerns were addressed with the patient. 10. Sleeve procedure consent obtained. Patient pre-operative labs obtained with elevated white count of 14,000. Patient previously notified that repeat CBC will be obtained. If persistent elevated white blood cell count, case will be canceled and rescheduled. Past Medical History Past Medical History: Asthma, Diabetes Mellitus, Deep Vein Thrombosis (DVT), Hypertension, Osteoarthritis (OA), Pneumonia, Pulmonary Embolus (PE), Rheumatoid Arthritis (RA), Sleep Apnea/CPAP/BIPAP, Vascular Disorder Additional Past Medical History / Comment(s): Seizure as infant only. Uses 2 canes, walker for distance, Scoliosis. 01/2015-DVT Rt leg and PE heath lungs. 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 Hx Kidney Mass w/ Removal. Uses C-PAP. Recent Bronchitis, completed AB RX, on Steroid Taper. Hx stasis ulcers BLE, has varicose veins. History of Any Multi-Drug Resistant Organisms: None Reported Past Surgical History: Adenoidectomy, Appendectomy, Hernia Repair, Joint Replacement, Tonsillectomy Additional Past Surgical History / Comment(s): Heath Hip Replacement, Nephrectomy left d/t mass(pt stated found to be benign), Wound clinic procedures. EGD, Colonoscopy. Past Anesthesia/Blood Transfusion Reactions: No Reported Reaction Smoking Status: Never smoker - Past Family History Son(s) Additional Family Medical History / Comment(s): He has one son with morbid obesity. Mother Family Medical History: Cancer Additional Family Medical History / Comment(s): breast cancer Father Family Medical History: Cancer, COPD, Coronary Artery Disease (CAD), Hypertension, Myocardial Infarction ([place]) Additional Family Medical History / Comment(s): emphysema Medications and Allergies Home Medications Medication Instructions Recorded Confirmed Type Carisoprodol [Soma] 350 mg PO TID PRN 03/21/14 06/28/19 History traMADol HCL [Ultram] 50 mg PO Q8HR PRN 10/05/17 06/28/19 History Albuterol Nebulized [Ventolin 2.5 mg INHALATION TID PRN 03/28/18 06/28/19 History Nebulized] Metoprolol Tartrate 25 mg PO BID 03/28/18 06/28/19 History Rivaroxaban [Xarelto] 10 mg PO DAILY 03/28/18 06/28/19 History Lisinopril [Zestril] 5 mg PO DAILY 07/13/18 06/28/19 History Multivitamin with Iron 1 each PO DAILY 10/23/18 06/28/19 History [Multivitamins with Iron] metFORMIN HCL [metFORMIN HCL ER] 1,000 mg PO BID 10/23/18 06/28/19 History Ergocalciferol (Vitamin D2) 50,000 unit PO Q7D 06/28/19 06/28/19 History [Vitamin D2] Furosemide [Lasix] 40 mg PO DAILY PRN 06/28/19 06/28/19 History predniSONE 30 mg PO DAILY 06/28/19 06/28/19 History Allergies Allergy/AdvReac Type Severity Reaction Status Date / Time honey Allergy burning Verified 06/28/19 17:18 [From [email or web address])] pain, Sulfa (Sulfonamide Allergy throat Verified 06/28/19 17:18 Antibiotics) swelling
[~2019-07-09 07:57] MED LIST changes: +CHLORHEXIDINE GLUCONATE 15 ML CUP MUCOUS MEM ONE; +DEXAMETHASONE SOD PHOSPHATE 10 MG/ML 1 ML VIAL IV ONE; +ENOXAPARIN 40 MG/0.4 ML SYRINGE SQ STA; +HYDROmorphone 0.5 MG/0.5 ML SYRINGE IVP PRN; +ONDANSETRON 4 MG/2 ML VIAL IVP ONE; +PANTOPRAZOLE 40 MG/10 ML VIAL IV STA; +SCOPOLAMINE 1.5MG/72HR PATCH TRANSDERM ONE; +ceFAZolin 3 GM in SODIUM CHLORIDE 0.9% 100 ML IVPB ONE
[2019-07-09 08:22] VITALS: BP 131/64; PULSE 72; RESP 18; TEMP 97.8
[2019-07-09] MEDS ORDERED: LACTATED RINGERS 1,000 ML IV ONE (08:35)
[2019-07-09 08:42] LABS: Glucose,Whole Blood 84 mg/dL (75-99)
[2019-07-09 08:46] LABS: Basophils # (A) 0.1 k/uL (0-0.2); Basophils % (A) 1 %; Eosinophils # (A) 0.2 k/uL (0-0.7); Eosinophils % (A) 2 %; HCT 47.2 % (39.0-53.0); HGB 15.1 gm/dL (13.0-17.5); Lymphocytes # (A) 2.1 k/uL (1.0-4.8); Lymphocytes % (A) 17 %; MCH 26.7 pg (25.0-35.0); MCV 83.2 fL (80.0-100.0); Mean Platelet Volume 7.7; Monocytes # (A) 0.6 k/uL (0-1.0); Monocytes % (A) 5 %; Neutrophils # (A) 9.4 k/uL (1.3-7.7); Neutrophils % (A) 75 %; Platelet Count 218 k/uL (150-450); RBC 5.68 m/uL (4.30-5.90); RDW 15.9 % (11.5-15.5); WBC 12.5 k/uL (3.8-10.6)
[2019-07-09 09:08] LABS: ALT 30 U/L (21-72); AST 25 U/L (17-59); African American GFR (CKD) >90 (>60 ml/min/1.73 sqM); Albumin 3.6 g/dL (3.5-5.0); Alkaline Phosphatase 65 U/L (38-126); Anion Gap 13 mmol/L; Blood Urea Nitrogen 20 mg/dL (9-20); Calcium 9.1 mg/dL (8.4-10.2); Carbon Dioxide 21 mmol/L (22-30); Chloride 104 mmol/L (98-107); Glucose 88 mg/dL (74-99); Non-African American GFR(CKD) 86 (>60 ml/min/1.73 sqM); Potassium 4.5 mmol/L (3.5-5.1); Sodium 138 mmol/L (137-145); Total Protein 7.3 g/dL (6.3-8.2)
--- NOTE | 2019-07-09 15:22 | P.PN ---
Progress Note - Text Progress Note Date: 07/09/19 Patient repeat CBC elevated over 12,000. He reports recent bronchitis and being placed on steroids recently discontinued 3 days ago. As he is already baseline high surgical risk,case is cancelled. He will need at minimum 30 days off steroids for sleeve gastrectomy. Patient will be reassessed. All questions addressed. Patient understanding of the findings.
--- NOTE | 2019-07-11 11:22 | P.DS ---
Providers Date of admission: 07/09/19 07:57 Expected date of discharge: 07/09/19 Attending physician: Shoshana Roblero Primary care physician: Mandi Nguyen - Discharge Diagnosis(es) (1) Morbid obesity with BMI of 60.0-69.9, adult Status: Acute Hospital Course: Case was canceled. He was not admitted to the hospital. He was discharged immediately. Plan - Discharge Summary Discharge Rx Participant: No New Discharge Prescriptions: No Action Carisoprodol [Soma] 350 mg PO TID PRN PRN Reason: Pain traMADol HCL [Ultram] 50 mg PO Q8HR PRN PRN Reason: Pain Rivaroxaban [Xarelto] 10 mg PO DAILY Metoprolol Tartrate 25 mg PO BID Albuterol Nebulized [Ventolin Nebulized] 2.5 mg INHALATION TID PRN PRN Reason: sob Lisinopril [Zestril] 5 mg PO DAILY metFORMIN HCL [metFORMIN HCL ER] 1,000 mg PO BID Multivitamin with Iron [Multivitamins with Iron] 1 each PO DAILY predniSONE 30 mg PO DAILY Furosemide [Lasix] 40 mg PO DAILY PRN PRN Reason: Edema Ergocalciferol (Vitamin D2) [Vitamin D2] 50,000 unit PO Q7D Discharge Medication List Carisoprodol [Soma] 350 mg PO TID PRN 03/21/14 [History] traMADol HCL [Ultram] 50 mg PO Q8HR PRN 10/05/17 [History] Albuterol Nebulized [Ventolin Nebulized] 2.5 mg INHALATION TID PRN 03/28/18 [History] Metoprolol Tartrate 25 mg PO BID 03/28/18 [History] Rivaroxaban [Xarelto] 10 mg PO DAILY 03/28/18 [History] Lisinopril [Zestril] 5 mg PO DAILY 07/13/18 [History] Multivitamin with Iron [Multivitamins with Iron] 1 each PO DAILY 10/23/18 [History] metFORMIN HCL [metFORMIN HCL ER] 1,000 mg PO BID 10/23/18 [History] Ergocalciferol (Vitamin D2) [Vitamin D2] 50,000 unit PO Q7D 06/28/19 [History] Furosemide [Lasix] 40 mg PO DAILY PRN 06/28/19 [History] predniSONE 30 mg PO DAILY 06/28/19 [History] Discharge Disposition: HOME SELF-CARE
== END 2019-07-09 09:11 | disposition home or self-care (01) ==
LOC: 2ORMAIN 07:57 → UNDOADMIN 07:57 → OR 07:57 → UNDODISIN 09:11 → EDSTATUS 11:30
PROVIDERS: ATTEND Surgery Plastic and Reconstructive Surgery
DX: E66.01 Morbid (severe) obesity due to excess calories (principal); D72.829 Elevated white blood cell count, unspecified; E11.9 Type 2 diabetes mellitus without complications; F32.9 Major depressive disorder, single episode, unspecified; F41.9 Anxiety disorder, unspecified; G47.33 Obstructive sleep apnea (adult) (pediatric); I11.9 Hypertensive heart disease without heart failure; I87.8 Other specified disorders of veins; I89.0 Lymphedema, not elsewhere classified; J45.909 Unspecified asthma, uncomplicated; M06.9 Rheumatoid arthritis, unspecified; M17.0 Bilateral primary osteoarthritis of knee; M41.9 Scoliosis, unspecified; M47.9 Spondylosis, unspecified; Z53.09 Procedure and treatment not carried out because of other contraindication; Z96.643 Presence of artificial hip joint, bilateral; Z87.01 Personal history of pneumonia (recurrent); Z79.01 Long term (current) use of anticoagulants; Z86.711 Personal history of pulmonary embolism; Z86.718 Personal history of other venous thrombosis and embolism; Z68.45 Body mass index [BMI] 70 or greater, adult; Z79.84 Long term (current) use of oral hypoglycemic drugs; Z79.899 Other long term (current) drug therapy; Z80.3 Family history of malignant neoplasm of breast; Z82.49 Family history of ischemic heart disease and other diseases of the circulatory system; Z82.5 Family history of asthma and other chronic lower respiratory diseases; Z90.5 Acquired absence of kidney; Z88.2 Allergy status to sulfonamides
CPT/HCPCS: 80053; 85025; J1100; J2405; J1650; C9113; 86850; 86900; 86901

== ENCOUNTER 2019-07-19 10:40 | Inpatient (IN) | payer MEDICARE, BC ==
[2019-07-19] MEDS ORDERED: DILTIAZEM DRIP BOLUS FROM BAG 1 MG SOLN IV ONE (11:08)
--- NOTE | 2019-07-19 11:24 | ED ---
General Adult HPI - General Chief complaint: Shortness of Breath Stated complaint: abn EKG Time Seen by Provider: 07/19/19 10:57 Source: patient Mode of arrival: wheelchair Limitations: no limitations - History of Present Illness Initial comments: Dictation was produced using [employer] dictation software. please excuse any grammatical, word or spelling errors. Chief Complaint: 64-year-old male with past medical history of asthma and diabetes DVT pneumonia. He presents with atrial fibrillation with rapid ventricular rate. History of Present Illness: 64-year-old female has no past medical history of atrial fibrillation. He was seen at his primary care office today for routine checkup. He is found to have atrial fibrillation rapid ventricular rate. He was seen at his PCPs office is found have high heart rate. EKG done at Dr. Nguyen's office showing atrial fibrillation with rapid ventricular rate. Patient does not have any history of A. fib. He is on Xarelto for DVT/PE prophylaxis. He has been on Xarelto for approximately 3 years. Patient does not know when his symptoms started. He feels well does not feel he is having significant palpitations. The ROS documented in this emergency department record has been reviewed and confirmed by me. Those systems with pertinent positive or negative responses h ave been documented in the HPI. All other systems are other negative and/or noncontributory. PHYSICAL EXAM: General Impression: Alert and oriented x3, not in acute distress, obese HEENT: Normocephalic atraumatic, extra-ocular movements intact, pupils equal and reactive to light bilaterally, mucous membranes moist. Cardiovascular: Irregularly irregular Chest: Lungs clear to auscultation bilaterally, no rhonchi, no wheeze, no rales Abdomen: Bowel sounds present, abdomen soft, non-tender, non-distended, no organomegaly Musculoskeletal: Pulses present and equal in all extremities, no peripheral edema Motor: no focal deficits noted Neurological: CN II-XII grossly intact, no focal motor or sensory deficits noted Skin: Intact with no visualized rashes Psych: Normal affect and mood ED course: 64-year-old male with new onset atrial fibrillation. He does have A. fib with RVR. As upon arrival shows heart rate of 144, rest of vital signs within acceptable limits. Patient started on Cardizem drip after Cardizem bolus from bag. Laboratory evaluation obtained showing mild symptoms 11.9 likely secondary stress. Coag panel is unremarkable. Metabolic panel shows magnesium 1.5, rest of labs unremarkable. Chest x-ray is nonacute. Patient's heart rate is slowly decreasing. We will admit patient to cardiac telemetry with cardiology consultation. Patient is currently on Xarelto. No need for starting heparin at this time. We will continue Xarelto. EKG interpretation: Ventricular rate 141, A. fib with RVR, QS 102, QTc 533. No KS prolongation, no QTC prolongation, no ST or T-wave changes noted. - Related Data Home Medications Medication Instructions Recorded Confirmed Carisoprodol [Soma] 350 mg PO TID PRN 03/21/14 07/19/19 traMADol HCL [Ultram] 50 mg PO Q8HR PRN 10/05/17 07/19/19 Albuterol Nebulized [Ventolin 2.5 mg INHALATION TID PRN 03/28/18 07/19/19 Nebulized] Metoprolol Tartrate 25 mg PO BID 03/28/18 07/19/19 Rivaroxaban [Xarelto] 10 mg PO DAILY 03/28/18 07/19/19 Lisinopril [Zestril] 5 mg PO DAILY 07/13/18 07/19/19 Multivitamin with Iron 1 tab PO DAILY 10/23/18 07/19/19 [Multivitamins with Iron] metFORMIN HCL [metFORMIN HCL ER] 1,000 mg PO BID 10/23/18 07/19/19 Ergocalciferol (Vitamin D2) 50,000 unit PO Q30D 06/28/19 07/19/19 [Vitamin D2] Furosemide [Lasix] 40 mg PO DAILY PRN 06/28/19 07/19/19 Allergies Allergy/AdvReac Type Severity Reaction Status Date / Time honey Allergy burning Verified 07/19/19 11:14 [From [facility] (honey)] pain, Sulfa (Sulfonamide Allergy throat Verified 07/19/19 11:14 Antibiotics) swelling Review of Systems ROS Statement: Those systems with pertinent positive or pertinent negative responses have been documented in the HPI. ROS Other: All systems not noted in ROS Statement are negative. Past Medical History Past Medical History: Asthma, Diabetes Mellitus, Deep Vein Thrombosis (DVT), Hypertension, Osteoarthritis (OA), Pneumonia, Pulmonary Embolus (PE), Rheumatoid Arthritis (RA), Sleep Apnea/CPAP/BIPAP, Vascular Disorder Additional Past Medical History / Comment(s): Seizure as infant only. Uses 2 canes, walker for distance, Scoliosis. 01/2015-DVT Rt leg and PE heath lungs. 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 Hx Kidney Mass w/ Removal. Uses C-PAP. Recent Bronchitis, completed AB RX, on Steroid Taper. Hx stasis ulcers BLE, has varicose veins. History of Any Multi-Drug Resistant Organisms: None Reported Past Surgical History: Adenoidectomy, Appendectomy, Hernia Repair, Joint Replacement, Tonsillectomy Additional Past Surgical History / Comment(s): Heath Hip Replacement, Nephrectomy left d/t mass(pt stated found to be benign), Wound clinic procedures. EGD, Colonoscopy. Past Anesthesia/Blood Transfusion Reactions: No Reported Reaction Past Psychological History: Anxiety, Depression Smoking Status: Never smoker - Past Family History Son(s) Additional Family Medical History / Comment(s): He has one son with morbid obesity. Mother Family Medical History: Cancer Additional Family Medical History / Comment(s): breast cancer Father Family Medical History: Cancer, COPD, Coronary Artery Disease (CAD), Hypertension, Myocardial Infarction ([place]) Additional Family Medical History / Comment(s): emphysema General Exam Limitations: no limitations Course Vital Signs 07/19/19 07/19/19 07/19/19 10:50 11:07 11:09 Temperature 98.7 F Pulse Rate 144 H 147 H Pulse Rate [ 141 H Supine Web Feeder] Respiratory 24 16 Rate Blood Pressure 106/62 O2 Sat by Pulse 94 L 98 Oximetry 07/19/19 07/19/19 07/19/19 11:39 11:40 11:50 Temperature Pulse Rate 144 H 141 H 120 H Pulse Rate [ Supine Web Feeder] Respiratory 18 16 17 Rate Blood Pressure 99/77 99/77 94/61 O2 Sat by Pulse 93 L 90 L 96 Oximetry Medical Decision Making - Lab Data Result diagrams: 07/19/19 11:04 07/19/19 11:04 Lab Results 07/19/19 07/19/19 07/19/19 Range/Units 11:04 11:04 11:04 WBC 11.9 H (3.8-10.6) k/uL RBC 5.10 (4.30-5.90) m/uL Hgb 13.9 (13.0-17.5) gm/dL Hct 43.7 (39.0-53.0) % MCV 85.8 (80.0-100.0) fL MCH 27.3 (25.0-35.0) pg MCHC 31.8 (31.0-37.0) g/dL RDW 15.9 H (11.5-15.5) % Plt Count 143 L (150-450) k/uL Neutrophils % 76 % Lymphocytes % 16 % Monocytes % 5 % Eosinophils % 2 % Basophils % 0 % Neutrophils # 9.1 H (1.3-7.7) k/uL Lymphocytes # 1.9 (1.0-4.8) k/uL Monocytes # 0.6 (0-1.0) k/uL Eosinophils # 0.2 (0-0.7) k/uL Basophils # 0.1 (0-0.2) k/uL Hypochromasia Slight PT 9.9 (9.0-12.0) sec INR 0.9 (<1.2) APTT 25.0 (22.0-30.0) sec Sodium 137 (137-145) mmol/L Potassium 4.3 (3.5-5.1) mmol/L Chloride 103 (98-107) mmol/L Carbon Dioxide 26 (22-30) mmol/L Anion Gap 8 mmol/L BUN 12 (9-20) mg/dL Creatinine 0.87 (0.66-1.25) mg/dL Est GFR (CKD-EPI)AfAm >90 (>60 ml/min/1.73 sqM) Est GFR (CKD-EPI)NonAf >90 (>60 ml/min/1.73 sqM) Glucose 131 H (74-99) mg/dL Calcium 8.5 (8.4-10.2) mg/dL Magnesium 1.5 L (1.6-2.3) mg/dL Total Bilirubin 0.8 (0.2-1.3) mg/dL AST 18 (17-59) U/L ALT 26 (21-72) U/L Alkaline Phosphatase 68 (38-126) U/L Troponin I (0.000-0.034) ng/mL Total Protein 6.7 (6.3-8.2) g/dL Albumin 3.2 L (3.5-5.0) g/dL 07/19/19 Range/Units 11:04 WBC (3.8-10.6) k/uL RBC (4.30-5.90) m/uL Hgb (13.0-17.5) gm/dL Hct (39.0-53.0) % MCV (80.0-100.0) fL MCH (25.0-35.0) pg MCHC (31.0-37.0) g/dL RDW (11.5-15.5) % Plt Count (150-450) k/uL Neutrophils % % Lymphocytes % % Monocytes % % Eosinophils % % Basophils % % Neutrophils # (1.3-7.7) k/uL Lymphocytes # (1.0-4.8) k/uL Monocytes # (0-1.0) k/uL Eosinophils # (0-0.7) k/uL Basophils # (0-0.2) k/uL Hypochromasia PT (9.0-12.0) sec INR (<1.2) APTT (22.0-30.0) sec Sodium (137-145) mmol/L Potassium (3.5-5.1) mmol/L Chloride (98-107) mmol/L Carbon Dioxide (22-30) mmol/L Anion Gap mmol/L BUN (9-20) mg/dL Creatinine (0.66-1.25) mg/dL Est GFR (CKD-EPI)AfAm (>60 ml/min/1.73 sqM) Est GFR (CKD-EPI)NonAf (>60 ml/min/1.73 sqM) Glucose (74-99) mg/dL Calcium (8.4-10.2) mg/dL Magnesium (1.6-2.3) mg/dL Total Bilirubin (0.2-1.3) mg/dL AST (17-59) U/L ALT (21-72) U/L Alkaline Phosphatase (38-126) U/L Troponin I <0.012 (0.000-0.034) ng/mL Total Protein (6.3-8.2) g/dL Albumin (3.5-5.0) g/dL Disposition Clinical Impression: Atrial fibrillation Disposition: ADMITTED IP TO THIS HOSP Condition: Fair Referrals: Mandi Nguyen MD [Primary Care Provider] - 1-2 days Decision Time: 12:23
[2019-07-19 11:26] LABS: Basophils # (A) 0.1 k/uL (0-0.2); Basophils % (A) 0 %; Eosinophils # (A) 0.2 k/uL (0-0.7); Eosinophils % (A) 2 %; HCT 43.7 % (39.0-53.0); HGB 13.9 gm/dL (13.0-17.5); Hypochromasia Slight; Lymphocytes # (A) 1.9 k/uL (1.0-4.8); Lymphocytes % (A) 16 %; MCH 27.3 pg (25.0-35.0); MCHC 31.8 g/dL (31.0-37.0); MCV 85.8 fL (80.0-100.0); Mean Platelet Volume 8.8; Monocytes # (A) 0.6 k/uL (0-1.0); Monocytes % (A) 5 %; Neutrophils # (A) 9.1 k/uL (1.3-7.7); Neutrophils % (A) 76 %; Platelet Count 143 k/uL (150-450); RDW 15.9 % (11.5-15.5); WBC 11.9 k/uL (3.8-10.6)
[2019-07-19] MEDS: DILTIAZEM 125 MG in SODIUM CHLORIDE 0.9% 100 ML IV SCH (11:32)
[2019-07-19 11:37] LABS: INR 0.9 (<1.2); Prothrombin Time 9.9 sec (9.0-12.0)
[2019-07-19 11:38] LABS: ALT 26 U/L (21-72); AST 18 U/L (17-59); African American GFR (CKD) >90 (>60 ml/min/1.73 sqM); Albumin 3.2 g/dL (3.5-5.0); Alkaline Phosphatase 68 U/L (38-126); Anion Gap 8 mmol/L; Blood Urea Nitrogen 12 mg/dL (9-20); Calcium 8.5 mg/dL (8.4-10.2); Carbon Dioxide 26 mmol/L (22-30); Chloride 103 mmol/L (98-107); Glucose 131 mg/dL (74-99); Magnesium 1.5 mg/dL (1.6-2.3); Potassium 4.3 mmol/L (3.5-5.1); Sodium 137 mmol/L (137-145); Total Bilirubin 0.8 mg/dL (0.2-1.3); Total Protein 6.7 g/dL (6.3-8.2)
--- NOTE | 2019-07-19 11:40 | XR ---
EXAMINATION TYPE: XR chest 2V DATE OF EXAM: 07/19/2019 COMPARISON: Prior chest x-ray February 13, 2016 HISTORY: Abnormal EKG, dysrhythmia. TECHNIQUE: Frontal and lateral views of the chest are obtained. FINDINGS: Eventration of right hemidiaphragm is redemonstrated. Exam slightly suboptimal technique du e to patient's large body habitus particularly lateral image. There is some chronic parenchymal rae es bilaterally without suspicious new focal air space opacity, pleural effusion, or pneumothorax seen . The cardiac silhouette size is stable and upper limits of normal. Bilateral hilar prominence sugg estive of underlying pulmonary artery hypertension is redemonstrated. Focal left lateral rib deformit y along the course of the posterior lateral seventh rib unchanged from prior. IMPRESSION: No acute process.
[2019-07-19] MEDS ORDERED: NALOXONE 0.4 MG/ML 1 ML VIAL IV PRN (12:21)
[2019-07-19] MEDS ORDERED: traMADol 50 MG TAB PO PRN (12:38)
[2019-07-19] MEDS ORDERED: ALBUTEROL NEBULIZED 2.5 MG/3 ML INHALATION PRN (12:38)
[2019-07-19] MEDS ORDERED: CARISOPRODOL 350 MG TAB PO PRN (12:38)
[2019-07-19] MEDS ORDERED: RIVAROXABAN 10 MG TAB PO SCH (12:45)
[2019-07-19] MEDS ORDERED: ACETAMINOPHEN TAB 325 MG TAB PO PRN (14:14)
[2019-07-19] MEDS ORDERED: ONDANSETRON 4 MG/2 ML VIAL IVP PRN (14:14)
--- NOTE | 2019-07-19 14:14 | P.HPIM ---
History of Present Illness H&P Date: 07/19/19 This is a 64-year-old male patient who presented to the ER with complaints of new onset atrial fibrillation with RVR. Patient reports that he went to a follow-up appointment with his PCP where it was found that he had an irregular heartbeat EKG was completed showing patient in A. fib with RVR. Patient reports he has not had any symptoms including chest pain shortness of breath or fatigue. Patient does have past medical history of asthma, DVT, hypertension, osteoporosis, pneumonia, pulmonary embolism, rheumatoid arthritis, sleep apnea, anxiety, depression and obesity. Patient is currently on Xarelto for DVT and PE that occurred 3 years ago. Chest x-ray completed showing no acute process. EKG completed showing atrial fibrillation with rapid ventricular response heart rate of 141. Patient was started on Cardizem drip cardiology services have been consulted. At this time patient denies any chest pain or shortness breath. Patient denies nausea vomiting or diarrhea. Patient denies any urinary frequency. Review of Systems Please refer to HPI otherwise unremarkable Past Medical History Past Medical History: Asthma, Diabetes Mellitus, Deep Vein Thrombosis (DVT), Hypertension, Osteoarthritis (OA), Pneumonia, Pulmonary Embolus (PE), Rheumatoid Arthritis (RA), Sleep Apnea/CPAP/BIPAP, Vascular Disorder Additional Past Medical History / Comment(s): Seizure as only. Uses 2 canes, walker for distance, Scoliosis. 01/2015-DVT Rt leg and PE heath lungs. 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 Hx Kidney Mass w/ Removal. Uses C-PAP. Recent Bronchitis, completed AB RX, on Steroid Taper. Hx stasis ulcers BLE, has varicose veins. History of Any Multi-Drug Resistant Organisms: None Reported Past Surgical History: Adenoidectomy, Appendectomy, Hernia Repair, Joint Replacement, Tonsillectomy Additional Past Surgical History / Comment(s): Heath Hip Replacement, Nephrectomy left d/t mass(pt stated found to be benign), Wound clinic procedures. EGD, Colonoscopy. Past Anesthesia/Blood Transfusion Reactions: No Reported Reaction Past Psychological History: Anxiety, Depression Smoking Status: Never smoker - Past Family History Son(s) Additional Family Medical History / Comment(s): He has one son with morbid obesity. Mother Family Medical History: Cancer Additional Family Medical History / Comment(s): breast cancer Father Family Medical History: Cancer, COPD, Coronary Artery Disease (CAD), Hypertension, Myocardial Infarction ([place]) Additional Family Medical History / Comment(s): emphysema Medications and Allergies Home Medications Medication Instructions Recorded Confirmed Type Carisoprodol [Soma] 350 mg PO TID PRN 03/21/14 07/19/19 History traMADol HCL [Ultram] 50 mg PO Q8HR PRN 10/05/17 07/19/19 History Albuterol Nebulized [Ventolin 2.5 mg INHALATION TID PRN 03/28/18 07/19/19 History Nebulized] Metoprolol Tartrate 25 mg PO BID 03/28/18 07/19/19 History Rivaroxaban [Xarelto] 10 mg PO DAILY 03/28/18 07/19/19 History Lisinopril [Zestril] 5 mg PO DAILY 07/13/18 07/19/19 History Multivitamin with Iron 1 tab PO DAILY 10/23/18 07/19/19 History [Multivitamins with Iron] metFORMIN HCL [metFORMIN HCL ER] 1,000 mg PO BID 10/23/18 07/19/19 History Ergocalciferol (Vitamin D2) 50,000 unit PO Q30D 06/28/19 07/19/19 History [Vitamin D2] Furosemide [Lasix] 40 mg PO DAILY PRN 06/28/19 07/19/19 History Allergies Allergy/AdvReac Type Severity Reaction Status Date / Time honey Allergy burning Verified 07/19/19 11:14 [From [facility] (honey)] pain, Sulfa (Sulfonamide Allergy throat Verified 07/19/19 11:14 Antibiotics) swelling Physical Exam Vitals: Vital Signs Temp Pulse Pulse Resp BP Pulse Ox 07/19/19 13:30 124 H 15 102/69 07/19/19 13:00 152 H 16 81/63 07/19/19 12:30 18 86/73 94 L 07/19/19 12:00 137 H 19 94/61 77 L 07/19/19 11:50 120 H 17 94/61 96 07/19/19 11:40 141 H 16 99/77 90 L 07/19/19 11:39 144 H 18 99/77 93 L 07/19/19 11:09 147 H 16 98 07/19/19 11:07 141 H 07/19/19 10:50 98.7 F 144 H 24 106/62 94 L Intake and Output 07/18/19 07/19/19 07/19/19 22:59 06:59 14:59 Other: Weight 204.117 kg Head normocephalic Neck supple Lungs clear to auscultation bilaterally no wheezing or crackles Heart irregular rate and rhythm no rub or gallop Abdomen is soft nontender nondistended positive bowel sounds no hepatosplenomega ly Extremities bilateral lower extremity erythema. Patient reports chronic Neuro alert and orientated to 3 Results CBC & Chem 7: 07/19/19 11:04 07/19/19 11:04 Labs: Abnormal Lab Results - Last 24 Hours (Table) 07/19/19 07/19/19 Range/Units 11:04 11:04 WBC 11.9 H (3.8-10.6) k/uL RDW 15.9 H (11.5-15.5) % Plt Count 143 L (150-450) k/uL Neutrophils # 9.1 H (1.3-7.7) k/uL Glucose 131 H (74-99) mg/dL Magnesium 1.5 L (1.6-2.3) mg/dL Albumin 3.2 L (3.5-5.0) g/dL Assessment and Plan Assessment: 1. New onset atrial fibrillation with rapid ventricular response. EKG completed showing atrial fibrillation with rapid ventricular response. Nonspecific ST abnormality probably digitalis effect. TSH level has been ordered. Patient started on Cardizem drip cardiology services have been consulted 2. Hypomagnesemia. Magnesium 1.5 replacement protocol 3. History of asthma. No exacerbation at this time 4. History of DVT and PE personally 3 years ago. Patient is maintained on xeralto. home Xeralot dose has been reordered 5. History of essential hypertension 6. History of osteoarthritis 7. History of sleep apnea 8. History of rheumatoid arthritis 9. History of anxiety and depression DVT prophylaxis xeralto. GI prophylaxis Pepcid Time with Patient: Greater than 30 (Greater than 60% of the total time spent in counseling and coordination of care. I performed an examination of the patient and discussed their management with the Nurse Practitioner. I have reviewed the Nurse Practitioner's notes and agree with the documented findings and plan of care)
[2019-07-19] MEDS: MAGNESIUM SULFATE-D5W PMX 1 GM in DEXTROSE/WATER 1 100ML.BAG IVPB SCH ×2 (14:32→17:58)
--- NOTE | 2019-07-19 17:20 | ECHOF ---
Referral Reason: MEASUREMENTS -------- HEIGHT: 170.2 cm WEIGHT: 204.1 kg BP: 102/69 RVIDd: 3.1 cm (< 3.3) IVSd: 1.6 cm (0.6 - 1.1) LVIDd: 3.3 cm (3.9 - 5.3) LVPWd: 1.8 cm (0.6 - 1.1) IVSs: 1.6 cm LVIDs: 2.8 cm LVPWs: 1.4 cm Ao Diam: 3.8 cm (2.0 - 3.7) AV Cusp: 2.0 cm (1.5 - 2.6) LA Diam: 3.3 cm (2.7 - 3.8) RAP: 5.00 mmHg RVSP: 8.53 mmHg FINDINGS -------- Atrial fibrillation. This was a technically difficult study with suboptimal views. The left ventricular size is normal. There is severe concentric left ventricular hypertrophy. Ove rall left ventricular systolic function is moderate-severely impaired with, an EF between 30 - 35 %. The right ventricle is normal in size. , and the LA measures 3.3cm. The right atrial size is normal. The aortic valve is trileaflet and appears structurally normal. The mitral valve is normal. The mitral valve leaflets are mildly thickened. Mild mitral annular c alcification present. There is trace mitral regurgitation. The tricuspid valve appears structurally normal. Trace tricuspid regurgitation present. Right vita tricular systolic pressure is normal at < 35 mmHg. There is no pulmonic regurgitation present. The aortic root size is normal. IVC Not well visulized. There is no pericardial effusion. Lumason used CONCLUSIONS -------- 1. Atrial fibrillation. 2. This was a technically difficult study with suboptimal views. 3. The left ventricular size is normal. 4. There is severe concentric left ventricular hypertrophy. 5. Overall left ventricular systolic function is moderate-severely impaired with, an EF between 30 - 35 %. 6. The right ventricle is normal in size. 7. , and the LA measures 3.3cm. 8. The right atrial size is normal. 9. Lumason used 10. The aortic valve is trileaflet and appears structurally normal. 11. The mitral valve is normal. 12. The mitral valve leaflets are mildly thickened. 13. Mild mitral annular calcification present. 14. There is trace mitral regurgitation. 15. The tricuspid valve appears structurally normal. 16. Trace tricuspid regurgitation present. 17. Right ventricular systolic pressure is normal at < 35 mmHg. 18. There is no pulmonic regurgitation present. 19. The aortic root size is normal. 20. IVC Not well visulized. 21. There is no pericardial effusion. CHAPLAIN: Tessie Hernandez RDCS
[2019-07-19] MEDS: SODIUM CHLORIDE 0.9% 1,000 ML IV SCH (17:55)
[2019-07-19] MEDS: metFORMIN 500 MG TAB PO SCH (20:33)
[2019-07-19] MEDS: ATORVASTATIN 40 MG TAB PO SCH (20:33)
[2019-07-19] MEDS: AMIODARONE 200 MG TAB PO SCH (20:34)
[2019-07-19] MEDS: METOPROLOL TARTRATE 25 MG TAB PO SCH (20:34)
[2019-07-19] MEDS ORDERED: METOPROLOL TARTRATE 25 MG TAB PO SCH (21:00)
--- NOTE | 2019-07-19 22:50 | CONS ---
CONSULTATION Mr. Meng is a 64-year-old male with known history of hypertension, history of diabetes, peripheral vascular disease, morbid obesity, who presented to Dr. Nguyen today on a routine visit and was found to have evidence of atrial fibrillation. The patient is unaware of the arrhythmia. He does not feel palpitations. He does not feel any change in his breathing. His activity is limited. He has mild to moderate chronic dyspnea on exertion, unchanged. He has a history of cellulitis and has been followed in the past in that regard. He also has a history of deep vein thrombosis, for which he has been anticoagulated. In the past, his ejection fraction was mildly to moderately impaired with ejection fraction of 40% to 50%. His last echocardiogram was in April of 2018 that showed ejection fraction 50%. He has evidence of pulmonary hypertension and left ventricular hypertrophy. He has been evaluated by Dr. Roblero for bariatric surgery, but his surgery has been postponed because of multiple issues, some of them related to insurance and some of them related to leukocytosis. He denies any chest discomfort. He denies any palpitations. He denies any change in his overall activity. MEDICATION: His medications at home included: 1. Xarelto 10 mg daily. 2. Metformin 1 gram twice a day. 3. Metoprolol tartrate 25 mg twice a day. 4. Zestril 5 mg daily. 5. Furosemide on a p.r.n. basis. 6. Vitamin D. 7. Soma. 8. Ventolin. REVIEW OF SYSTEMS: RESPIRATORY SYSTEM: He has chronic dyspnea on exertion. No recent wheezing or cough. GI SYSTEM: No recent GI bleeding. No peptic ulcer disease. SYSTEM: No dysuria or hematuria. NERVOUS SYSTEM: No history of seizure. PHYSICAL EXAMINATION: This is a 64-year-old male, morbidly obese, alert, oriented, in no apparent distress. Blood pressure 102/60 with a heart rate in the 120s. HEAD: Normocephalic. EYES: Sclerae anicteric. NECK: Good carotid upstroke. No bruit. LUNGS: Decreased air exchange bilaterally. No wheezes. HEART: Irregularly irregular. S1, S2. No S3. No rub appreciated. ABDOMEN: Soft, obese, nontender. EXTREMITIES: Chronic skin changes and edema noted. LAB DATA/IMAGING: Lab data revealed hemoglobin of 13.9, white blood cells 11.9, BUN and creatinine or 12 and 0.87. Troponin less than 0.012. TSH 1.730. EKG revealed atrial fibrillation with a rapid ventricular response and nonspecific ST-T wave changes. Chest x-ray shows no acute infiltrate. IMPRESSION: 1. Atrial fibrillation of unknown duration. The patient is asymptomatic in that regard. 2. Morbid obesity. 3. Hypertension. 4. Diabetes mellitus. 5. History of cellulitis. 6. Mild cardiomyopathy. RECOMMENDATIONS: I will increase the dose of his beta elvira. Patient is on IV Cardizem. I will add amiodarone to his regimen to see if he converts back to sinus mechanism. I will increase the dose of his Xarelto. Will obtain echocardiogram with Doppler. If he sustains atrial fibrillation, we will control the rate and, depending on his status, we will make a decision if cardioversion is needed to restore sinus mechanism. I have discussed those findings with the patient in detail. He is in full understanding and agreement. Thank you for this consult. Will follow with you. JENNIFER / IJN: [id number] /
[2019-07-20] MEDS: DILTIAZEM 125 MG in SODIUM CHLORIDE 0.9% 100 ML IV SCH (00:18)
[2019-07-20 00:44] VITALS: RESP 18
[2019-07-20 07:28] LABS: Anisocytosis Slight; Basophils # (A) 0.1 k/uL (0-0.2); Basophils % (A) 1 %; Eosinophils # (A) 0.3 k/uL (0-0.7); Eosinophils % (A) 3 %; HCT 42.3 % (39.0-53.0); HGB 13.3 gm/dL (13.0-17.5); Hypochromasia Slight; Lymphocytes # (A) 1.6 k/uL (1.0-4.8); Lymphocytes % (A) 17 %; MCH 27.2 pg (25.0-35.0); MCHC 31.3 g/dL (31.0-37.0); MCV 86.8 fL (80.0-100.0); Monocytes # (A) 0.4 k/uL (0-1.0); Monocytes % (A) 5 %; Neutrophils # (A) 7.1 k/uL (1.3-7.7); Neutrophils % (A) 74 %; Platelet Count 145 k/uL (150-450); RBC 4.88 m/uL (4.30-5.90); WBC 9.6 k/uL (3.8-10.6)
[2019-07-20 07:33] LABS: ALT 22 U/L (21-72); AST 15 U/L (17-59); African American GFR (CKD) >90 (>60 ml/min/1.73 sqM); Albumin 3.1 g/dL (3.5-5.0); Alkaline Phosphatase 70 U/L (38-126); Anion Gap 8 mmol/L; Blood Urea Nitrogen 17 mg/dL (9-20); Calcium 8.6 mg/dL (8.4-10.2); Carbon Dioxide 29 mmol/L (22-30); Chloride 100 mmol/L (98-107); Glucose 128 mg/dL (74-99); Potassium 4.4 mmol/L (3.5-5.1); Sodium 137 mmol/L (137-145); Total Bilirubin 0.6 mg/dL (0.2-1.3); Total Protein 6.6 g/dL (6.3-8.2)
[2019-07-20 07:45] LABS: Glucose,Whole Blood 119 mg/dL (75-99)
[2019-07-20 07:56] VITALS: PULSE 75
[2019-07-20] MEDS ORDERED: MULTIVITAMINS, THERA 1 EACH TAB PO SCH (09:00)
[2019-07-20] MEDS ORDERED: FAMOTIDINE 20 MG TAB PO SCH (09:00)
[2019-07-20] MEDS ORDERED: RIVAROXABAN 20 MG TAB PO SCH (09:00)
[2019-07-20] MEDS: ATORVASTATIN 40 MG TAB PO SCH (09:11)
[2019-07-20] MEDS: AMIODARONE 200 MG TAB PO SCH (09:11)
[2019-07-20] MEDS: metFORMIN 500 MG TAB PO SCH (09:11)
[2019-07-20] MEDS: METOPROLOL TARTRATE 25 MG TAB PO SCH (09:12)
[2019-07-20 12:00] LABS: Glucose,Whole Blood 120 mg/dL (75-99)
[2019-07-20 12:30] VITALS: BP 99/64; TEMP 99.3
[2019-07-20] MEDS: SODIUM CHLORIDE 0.9% 1,000 ML IV SCH (13:24)
--- NOTE | 2019-07-20 14:06 | P.DS ---
Providers Date of admission: 07/20/19 10:37 Expected date of discharge: 07/20/19 Attending physician: Mandi Nguyen Consults: 07/19/19 12:04 Consult Physician Routine Consulting Provider: Eddie Garrett Consult Reason/Comments: afib rvr Do you want consulting provider notified?: Yes Primary care physician: Mandi Wendy [place] Hospital Course: Discharge Diagnosis 1. New onset atrial fibrillation with rapid ventricular response. EKG completed showing atrial fibrillation with rapid ventricular response. Nonspecific ST abnormality probably digitalis effect. TSH level 1.730. Patient started on Cardizem drip cardiology services have been consulted. Discussed case with cardiology services. Patient has converted to sinus rhythm. Patient to be DC'd home on amiodarone 400 twice a day 1 week and then decrease to 200 twice a day. Patient also to be DC'd on increased dose of Lopressor 50 twice a day and xarelto 20 mg daily. Patient to follow up outpatient with cardiology services 2. Hypomagnesemia. Magnesium 1.5 replacement protocol. repeat Mag 2.0 3. History of asthma. No exacerbation at this time 4. History of DVT and PE personally 3 years ago. Patient is maintained on xarelto. dose increased to 20mg daily for A. fib coverage 5. History of essential hypertension 6. History of osteoarthritis 7. History of sleep apnea 8. History of rheumatoid arthritis 9. History of anxiety and depression Hospital course This is a 64-year-old male patient who presented to the ER with complaints of new onset atrial fibrillation with RVR. Patient reports that he went to a follow-up appointment with his PCP where it was found that he had an irregular heartbeat EKG was completed showing patient in A. fib with RVR. Patient reports he has not had any symptoms including chest pain shortness of breath or fatigue. Patient does have past medical history of asthma, DVT, hypertension, osteoporosis, pneumonia, pulmonary embolism, rheumatoid arthritis, sleep apnea, anxiety, depression and obesity. Patient is currently on Xarelto for DVT and PE that occurred 3 years ago. Chest x-ray completed showing no acute process. EKG completed showing atrial fibrillation with rapid ventricular response heart rate of 141. Patient was started on Cardizem drip cardiology services have been consulted. At this time patient denies any chest pain or shortness breath. Patient denies nausea vomiting or diarrhea. Patient denies any urinary frequency. On 07/20/2019 patient's alert and oriented 3. Patient has converted back to normal sinus rhythm. Discussed case with cardiology Dr. Garrett. Patient may be discharged home on amiodarone 400 twice a day 1 week and then 200 twice a day. Lopressor also increased to 50 mg twice a day. Xarelto dose increased to 20 mg daily to cover A. fib prophylaxis. Patient denies any chest pain or shortness of breath. Patient denies nausea vomiting or diarrhea. Patient denies any urinary burning or frequency. Patient to follow up with cardiology services and PCP for further management I performed an examination of the patient and discussed their management with the Nurse Practitioner. I have reviewed the Nurse Practitioner's notes and agree with the documented findings and plan of care Patient Condition at Discharge: Stable Plan - Discharge Summary Discharge Rx Participant: No New Discharge Prescriptions: New Amiodarone [Cordarone] 200 mg PO BID 30 Days #42 tab Metoprolol Tartrate [Lopressor] 50 mg PO BID 30 Days #60 tab Rivaroxaban [Xarelto] 20 mg PO DAILY 30 Days #30 tab Atorvastatin [Lipitor] 40 mg PO DAILY 30 Days #30 tab Continue Carisoprodol [Soma] 350 mg PO TID PRN PRN Reason: Pain traMADol HCL [Ultram] 50 mg PO Q8HR PRN PRN Reason: Pain Albuterol Nebulized [Ventolin Nebulized] 2.5 mg INHALATION TID PRN PRN Reason: Shortness Of Breath metFORMIN HCL [metFORMIN HCL ER] 1,000 mg PO BID Multivitamin with Iron [Multivitamins with Iron] 1 tab PO DAILY Furosemide [Lasix] 40 mg PO DAILY PRN PRN Reason: Edema Ergocalciferol (Vitamin D2) [Vitamin D2] 50,000 unit PO Q30D Discontinued Rivaroxaban [Xarelto] 10 mg PO DAILY Metoprolol Tartrate 25 mg PO BID Lisinopril [Zestril] 5 mg PO DAILY Discharge Medication List Carisoprodol [Soma] 350 mg PO TID PRN 03/21/14 [History] traMADol HCL [Ultram] 50 mg PO Q8HR PRN 10/05/17 [History] Albuterol Nebulized [Ventolin Nebulized] 2.5 mg INHALATION TID PRN 03/28/18 [History] Multivitamin with Iron [Multivitamins with Iron] 1 tab PO DAILY 10/23/18 [History] metFORMIN HCL [metFORMIN HCL ER] 1,000 mg PO BID 10/23/18 [History] Ergocalciferol (Vitamin D2) [Vitamin D2] 50,000 unit PO Q30D 06/28/19 [History] Furosemide [Lasix] 40 mg PO DAILY PRN 06/28/19 [History] Amiodarone [Cordarone] 200 mg PO BID 30 Days #42 tab 07/20/19 [Rx] Atorvastatin [Lipitor] 40 mg PO DAILY 30 Days #30 tab 07/20/19 [Rx] Metoprolol Tartrate [Lopressor] 50 mg PO BID 30 Days #60 tab 07/20/19 [Rx] Rivaroxaban [Xarelto] 20 mg PO DAILY 30 Days #30 tab 07/20/19 [Rx] Follow up Appointment(s)/Referral(s): Mandi Nguyen MD [Primary Care Provider] - 1-2 days Eddie Garrett MD [STAFF PHYSICIAN] - 1 Week Activity/Diet/Wound Care/Special Instructions: Activity as tolerated Diet heart healthy consistent carb Discharge Disposition: HOME SELF-CARE
--- NOTE | 2019-07-20 14:17 | PN ---
PROGRESS NOTE Mr. Meng is a 64-year-old male with a known history of hypertension, history of diabetes who presented with atrial fibrillation of unknown duration. He is back in sinus mechanism. He is feeling well. He is denying any chest pain. No dizziness. No palpitation. He denies any nausea. He checked his smart watch and he did not notice any heart rate above 101 over the last week. He continued to be on Xarelto 20 mg daily, metoprolol tartrate 50 mg twice a day, amiodarone 400 twice a day and Lipitor 40 mg daily. PHYSICAL EXAMINATION: Blood pressure 103/60 with a heart rate in the 70s. LUNGS: Clear. HEART: Regular rate and rhythm, S1, S2. No S3. No rub. ABDOMEN: Soft, obese, nontender. EXTREMITIES: With chronic skin changes and chronic stasis. LAB DATA: Revealed BUN and creatinine of 17 and 1.01, potassium 4.4, hemoglobin 13.3. He had an echocardiogram that revealed a severely impaired left ventricular systolic function which is new for him with an ejection fraction of 30% to 35% with no significant valve disease. IMPRESSION: 1. Paroxysmal atrial fibrillation of unknown duration in the past. 2. Morbid obesity. 3. History of deep venous thrombosis. 4. Cardiomyopathy. 5. Diabetes. RECOMMENDATION: In the past his left ventricular systolic function was normal. At this time, I will continue present therapy. It is possible that some of it is related to the LV dysfunction. I will continue present therapy. His blood pressure is on the low side so we will hold on adding an ADELAIDA inhibitor at this time. He will be further evaluated in the office and if his blood pressure is stable, then an ADELAIDA inhibitor will be added and I will repeat his echo at that time. In regard to the amiodarone, he will be sent home on 400 mg twice a day for a week, then 200 mg twice a day. MMODL / IJN: [id number] /
== END 2019-07-20 16:42 | disposition home or self-care (01) | DRG 309 ==
LOC: EC 10:40 → 3SCARD 12:33 → OBSVTOIN 07-20 10:37
PROVIDERS: ADMIT Internal Medicine; ATTEND Internal Medicine
DX: I48.0 Paroxysmal atrial fibrillation (principal); Z68.45 Body mass index [BMI] 70 or greater, adult; E11.51 Type 2 diabetes mellitus with diabetic peripheral angiopathy without gangrene; I27.20 Pulmonary hypertension, unspecified; I42.9 Cardiomyopathy, unspecified; M41.9 Scoliosis, unspecified; E66.01 Morbid (severe) obesity due to excess calories; E83.42 Hypomagnesemia; I11.9 Hypertensive heart disease without heart failure; F32.9 Major depressive disorder, single episode, unspecified; D72.829 Elevated white blood cell count, unspecified; F41.9 Anxiety disorder, unspecified; G47.30 Sleep apnea, unspecified; J45.909 Unspecified asthma, uncomplicated; M06.9 Rheumatoid arthritis, unspecified; M81.0 Age-related osteoporosis without current pathological fracture; I83.90 Asymptomatic varicose veins of unspecified lower extremity; M19.90 Unspecified osteoarthritis, unspecified site; R06.09 Other forms of dyspnea; Z86.711 Personal history of pulmonary embolism; Z86.718 Personal history of other venous thrombosis and embolism; Z90.5 Acquired absence of kidney; Z79.01 Long term (current) use of anticoagulants; Z79.899 Other long term (current) drug therapy; Z79.84 Long term (current) use of oral hypoglycemic drugs; Z87.01 Personal history of pneumonia (recurrent); Z88.2 Allergy status to sulfonamides; Z91.018 Allergy to other foods; Z90.49 Acquired absence of other specified parts of digestive tract; Z96.643 Presence of artificial hip joint, bilateral; Z80.3 Family history of malignant neoplasm of breast; Z82.49 Family history of ischemic heart disease and other diseases of the circulatory system; Z82.5 Family history of asthma and other chronic lower respiratory diseases
CPT/HCPCS: 36415; 71046; 80053; 83735; 84443; 84484; 85025; 85610; 85730; 93005; 93306; 96365; 96366; 96368; 96376; 99285

== ENCOUNTER → 2019-10-05 | Outpatient (CLI) | payer MEDICARE, BC ==
[2019-10-05 11:18] LABS: Basophils # (A) 0.1 k/uL (0-0.2); Basophils % (A) 1 %; Eosinophils # (A) 0.2 k/uL (0-0.7); Eosinophils % (A) 3 %; HCT 40.7 % (39.0-53.0); HGB 12.2 gm/dL (13.0-17.5); Hypochromasia Moderate; Lymphocytes # (A) 1.4 k/uL (1.0-4.8); Lymphocytes % (A) 16 %; MCH 25.8 pg (25.0-35.0); MCHC 30.1 g/dL (31.0-37.0); MCV 85.6 fL (80.0-100.0); Mean Platelet Volume 7.1; Monocytes # (A) 0.5 k/uL (0-1.0); Monocytes % (A) 5 %; Neutrophils # (A) 6.5 k/uL (1.3-7.7); Neutrophils % (A) 74 %; Platelet Count 181 k/uL (150-450); RBC 4.75 m/uL (4.30-5.90); RDW 14.4 % (11.5-15.5); WBC 8.7 k/uL (3.8-10.6)
[2019-10-05 16:07] LABS: African American GFR (CKD) 91.8 (60.0-200.0); Albumin 3.4 g/dL (3.80-4.90); Albumin/Globulin Ratio 1.1 (1.60-3.17); Anion Gap 5.1 mmol/L (4.00-12.00); Calcium 8.6 mg/dL (8.7-10.3); Carbon Dioxide 31.9 mmol/L (21.6-31.8); Globulin 3.1 g/dL (1.6-3.3); Potassium 4.8 mmol/L (3.5-5.5); Total Bilirubin 0.5 mg/dL (0.3-1.2); Total Protein 6.5 g/dL (6.2-8.2)
[2019-10-05 18:44] LABS: Hemoglobin A1C 6.1 % (4.0-6.0)
== END | disposition home or self-care (01) ==
LOC: LABWHC1 09:52
PROVIDERS: ATTEND Thoracic Surgery (Cardiothoracic Vascular Surgery)
DX: I10 Essential (primary) hypertension (principal); E03.2 Hypothyroidism due to medicaments and other exogenous substances; E11.622 Type 2 diabetes mellitus with other skin ulcer; I87.2 Venous insufficiency (chronic) (peripheral); E66.01 Morbid (severe) obesity due to excess calories; L97.222 Non-pressure chronic ulcer of left calf with fat layer exposed
CPT/HCPCS: 36415; 80053; 83036; 84134; 84443; 85025

== ENCOUNTER → 2019-10-11 | Outpatient (CLI) | payer MEDICARE, BC ==
--- NOTE | 2019-10-11 15:34 | US ---
EXAMINATION TYPE: US venous doppler duplex LE DATE OF EXAM: 10/11/2019 3:07 PM COMPARISON: NONE CLINICAL HISTORY: L97.222 CHR ULCER LT CALF. SIDE PERFORMED: Bilateral TECHNIQUE: The lower extremity deep venous system is examined utilizing real time linear array sonog scott with graded compression, doppler sonography and color-flow sonography. VESSELS IMAGED: External Iliac Vein (EIV)-not seen Common Femoral Vein-not seen Deep Femoral Vein-not seen Greater Saphenous Vein *-not seen Femoral Vein Popliteal Vein Small Saphenous Vein *-not seen Proximal Calf Veins-not seen (* superficial vessels) Gross morbid obesity. Unable to scan in bilateral groin due to large panus. Right Leg: Femoral vein appears negative for DVT, popliteal vein viewed in a very limited capacity, unable to turn probe in sagittal plane due to patients size, other vessels not seen. There is no obvious reflux seen on Right in these limited views. Left Leg: Femoral vein appears negative for DVT, limited views of popliteal vein, unable to turn pro be in sagittal plane due to patients size. There is reflux seen in femoral vein and limited views of popliteal vein. IMPRESSION: Limited evaluation without definite evidence for DVT at this time.
== END | disposition home or self-care (01) ==
LOC: RADUSWWP 13:44
PROVIDERS: ATTEND Thoracic Surgery (Cardiothoracic Vascular Surgery)
DX: E11.622 Type 2 diabetes mellitus with other skin ulcer (principal); L97.222 Non-pressure chronic ulcer of left calf with fat layer exposed; I87.2 Venous insufficiency (chronic) (peripheral); E66.01 Morbid (severe) obesity due to excess calories; Z88.2 Allergy status to sulfonamides; Z91.048 Other nonmedicinal substance allergy status
CPT/HCPCS: 93922; 93970

== ENCOUNTER → 2020-02-01 | Outpatient (CLI) | payer MEDICARE, BC ==
[2020-02-01 15:47] VITALS: BMI 71.6
== END | disposition home or self-care (01) ==
LOC: DBWHC3 09:14
PROVIDERS: ATTEND Podiatrist
DX: E11.622 Type 2 diabetes mellitus with other skin ulcer (principal); L97.222 Non-pressure chronic ulcer of left calf with fat layer exposed; I87.2 Venous insufficiency (chronic) (peripheral); E66.01 Morbid (severe) obesity due to excess calories; Z68.45 Body mass index [BMI] 70 or greater, adult
CPT/HCPCS: G0108 ×2